=== PATIENT | male | born 1955 | race Caucasian/White ===

== ENCOUNTER 2025-01-16 10:50 | Outpatient (AMB) | payer MEDICARE, BC, SELFPAY ==
--- NOTE | 2025-01-16 11:08 | MHC.PC.OV ---
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 Allergies bee pollen (BEE STINGS) Allergy (Severe, Unverified 01/16/25 11:10) ANAPHYLAXIS, hives Medication List - Last Reconciled 01/17/25 by ENRICO Veras aspirin 81 mg PO DAILY atorvastatin (Lipitor) 80 mg PO DAILY Tobacco use date assessed: 01/16/25 Dental Screening Dental Screen Date: 01/16/25 Did you have a dental visit in the last 12 months?: Yes Did you have a dental problem in the last 6 months where you did not have access to dental care?: No Was dental information given to patient?: Patient has dentist HPI HPI Comments History of Present Illness Details 69-year-old male with a past medical history of prediabetes, hyperlipidemia, left ear cholesteatoma, osteoarthritis, elevated blood pressure and obesity presents to establish care. Left eye retinal occlusion-receives injections every 5 weeks. Needs referral to [facility]. History of left ear cholesteatoma. Underwent operation at [place] some 30 years ago. Sees ENT in [place] annually for exam. Patient had bilateral knee replacements in 2018. He also had right rotator cuff repair in 2019. Surgeries were done at [facility]. He was seen recently for left shoulder pain and received an injection. Reports they did imaging and he does not have a rotator cuff tear. He has elevated blood pressure. He watches his sodium. States that he does not want to take any medication for this. He has a blood pressure cuff at home. He recently started exercising again. He has a a history of angioedema with bee stings. No history of trouble breathing or throat swelling. He has an EpiPen that is up-to-date. He had a negative Cologuard test in February of 2024. Hyperlipidemia is treated with Lipitor 80 mg daily. He is also on baby aspirin. Several years ago he was evaluated for for possible TIA, but he says that neurology saw him and ran multiple tests, and they determined it was not a TIA or CVA. No alcohol. He does not smoke. He also has a history of prediabetes. He is traveling to [place] and needs a letter excusing him from the yellow fever vaccine because he is over the age of 65. Per CDC guidelines this age group is at an increased risk of complications. I provided him with a letter today. ROS: Constitutional: No unexplained weight loss, fever, chills, fatigue or night sweats. Eyes: No vision changes, chronic blurriness of the left eye Respiratory: No shortness of breath, cough or sputum production. Cardiovascular: No chest pain, chest pressure or chest discomfort. No palpitations or pedal edema. Neurologic: No headache, dizziness, syncope Endocrine: No cold or heat intolerance. No polyuria or polydipsia. Psychiatric: No depression or anxiety. No SI/HI. Physical exam: Constitutional: Alert, in no distress. Neck: Supple, Full range of motion. No lymphadenopathy. No palpable thyroid masses. Respiratory: Clear to auscultation. Cardiovascular: S1 S2 regular. No murmurs. Neurologic: No focal neurological deficits. Extremities: Warm and well perfused. No clubbing, cyanosis or edema. Psychiatric: Normal mood and affect [facility] Medical History (Updated 01/17/25 @ 16:36 by ENRICO Veras) Retinal vascular occlusion, left eye Elevated blood pressure reading Obesity, class 2 History of cholesteatoma Prediabetes History of shingles Hyperlipemia Rotator cuff injury Surgical History (Updated 01/17/25 @ 16:34 by ENRICO Veras) History of repair of right rotator cuff S/P knee replacement Family History (Updated 01/16/25 @ 11:14 by Angelina Casey MA) Sister Cardiomyopathy Social History (Updated 01/16/25 @ 11:14 by Angelina Casey MA) Housing: House Alcohol intake: current Comment: Socially Patient Tobacco Use Status: Never used Tobacco e-Cigarette/Vaping Use: Never Used Second Hand Smoke Exposure: No service: No Current occupational status: employed Current occupation: [employer] Current occupational exposures/hazards: No Cognitive needs: No Hearing needs: Yes Vision needs: Yes Questionnaire PHQ-9 Over the last 2 weeks, how often have you been bothered by any of the following problems? 1. Little interest or pleasure in doing things: not at all 2. Feeling down, depressed, or hopeless: not at all 3. Trouble falling or staying asleep, or sleeping too much: not at all 4. Feeling tired or having little energy: not at all 5. Poor appetite or overeating: not at all 6. Feeling bad about yourself - or that you are a failure or have let yourself or your family down: not at all 7. Trouble concentrating on things, such as reading the newspaper or watching television: not at all 8. Moving or speaking so slowly that other people could have noticed. Or the opposite - being so fidgety or restless that you have been moving around a lot more than usual: not at all 9. Thoughts that you would be better off or of hurting yourself in some way: not at all Total score: 0 Depression Screening Interpretation: Negative Depression Screening Done: Yes 52985 - PHQ-9 Billing: Yes Source: Developed by Drs. Nick Ross, Bhavana Vyas, Baldemar Burciaga and colleagues, with an educational myrtle from [employer]. Thrive Questionnaire Date Thrive assessed: 01/16/25 I am a: Patient What is your living situation today?: I have a steady place to live Within the past 12 months, did you worry whether your food would run out before you got money to buy more?: Never true Do you have trouble paying for medicines?: No Do you have trouble getting transportation to medical appointments?: No Do you have trouble paying your heating and electricity bill?: No Do you have trouble taking care of your child, family member or friend?: No Do you have trouble with day-to-day activities such as bathing, preparing meals, shopping, managing finances, etc.?: No Are you currently unemployed and looking for a job?: No Are you interested in more education?: No Please select the resources that you would like help with: None Currently or been in a relationship where the following occur: I choose not to answer THRIVE Score: 0 AUDIT C Alcohol Use Questionnaire (AUDIT-C) 1. How often do you have a drink containing alcohol?: Monthly or less 2. How many drinks containing alcohol do you have on a typical day when you are drinking?: 1 or 2 3. How often do you have six or more drinks on one occasion?: Never Total Score: 1 GUS-7 AMB Questionnaire GUS-7 Feeling nervous, anxious, or on edge: 0 = Not at all Not being able to stop or control worryin = Not at all Worrying too much about different things: 0 = Not at all Trouble relaxin = Not at all Being so restless that it is hard to sit still: 0 = Not at all Becoming easily annoyed or irritable: 0 = Not at all Feeling afraid as if something awful might happen: 0 = Not at all Total GUS-7 score (0-4 normal; 5-9 mild; 10-14 moderate; 15-21 severe): 0 Source: Developed by Drs. Nick Ross, Bhavana Vyas, Blademar Burciaga and colleagues, with an educational myrtle from [employer]. GUS-7 Assessment Billing GUS-7 Assessment Tool: GUS-7 Assessment 32560 Physical exam (Primary Care) Vital Signs: Last Vital Signs Temp 97.6 F 01/16/25 11:16 Pulse 71 01/16/25 11:16 Resp 16 01/16/25 11:16 BP 142/88 H 01/16/25 11:16 Pulse Ox 98 01/16/25 11:16 Oxygen Delivery Method Room Air 01/16/25 11:16 BMI result Body Mass Index 38.8 Tobacco/Smoking Status: Tobacco use Status Tobacco use date assessed 01/16/25 01/16/25 11:19 Patient Tobacco Use Status Never used Tobacco 01/16/25 11:19 e-Cigarette/Vaping Use Never Used 01/16/25 11:19 PHQ-9: PHQ-9 Score PHQ-9: Total score 0 01/16/25 11:37 Depression Screening Interpretation: Negative Thrive Assessment: Date of Thrive Assessment Date Thrive assessed 01/16/25 01/16/25 11:19 Currently or been in a relationship where the following occur: I choose not to answer Coding Level of Care Code New Pt Level 4 (15940) Complex EM visit Add On G2211 Diagnoses Pure hypercholesterolemia E78.00 Hyperlipidemia type: pure hypercholesterolemia Prediabetes R73.03 History of cholesteatoma Z86.69 Obesity, class 2 E66.812 Elevated blood pressure reading R03.0 Additional Codes GUS-7 Assessment Billing - GUS-7 Assessment Tool: GUS-7 Assessment 76553 ([id number]) PHQ-9 - 58696 - PHQ-9 Billing: Yes ([id number]) Assessment & Plan Assessment & Plan (1) Hyperlipemia: Code(s): E78.5 - Hyperlipidemia, unspecified Category: Medical Qualifiers: Hyperlipidemia type: pure hypercholesterolemia Qualified Code(s): E78.00 - Pure hypercholesterolemia, unspecified Plan: Recommended Mediterranean diet and continuing exercise to promote healthy weight. Continue atorvastatin and baby aspirin. (2) Prediabetes: Code(s): R73.03 - Prediabetes Category: Medical Plan: Check hemoglobin A1c. Recommended low carbohydrate and low sugar diet. He does not drink alcohol. Continue exercise to promote weight loss. (3) History of cholesteatoma: Code(s): Z86.69 - Personal history of other diseases of the nervous system and sense organs Category: Medical Plan: Followed by ENT annually. Referral placed. (4) Obesity, class 2: Code(s): E66.812 - Obesity, class 2 Category: Medical Plan: Recommended decreasing portion sizes, exercising at least 5 days per week. Avoiding her carbohydrate foods. Avoid juice and soda. (5) Elevated blood pressure reading: Code(s): R03.0 - Elevated blood-pressure reading, without diagnosis of hypertension Category: Medical Plan: We discussed the implications of uncontrolled high blood pressure. Recommended low-sodium diet. He recently started exiting sizing again. He is monitoring his blood pressure at home. He does not want to start medication for hypertension. We will re-evaluate in 3 months' time. Check renal function. Plan Follow up in 3 months. Orders: Orders Complete Blood Count no Diff 01/16/25 E78.5 - Hyperlipidemia, unspecified, R73.03 - Prediabetes Lipid Panel 01/16/25 E78.5 - Hyperlipidemia, unspecified, R73.03 - Prediabetes Hemoglobin A1c 01/16/25 E78.5 - Hyperlipidemia, unspecified, R73.03 - Prediabetes, R73.9 - Hyperglycemia, unspecified TSH reflex Free T4 01/16/25 E78.5 - Hyperlipidemia, unspecified, R73.03 - Prediabetes Comprehensive Met. Panel 01/16/25 E78.5 - Hyperlipidemia, unspecified, R73.03 - Prediabetes Prostate Specific Antigen 01/16/25 E78.5 - Hyperlipidemia, unspecified, R73.03 - Prediabetes, Z12.5 - Encounter for screening for malignant neoplasm of prostate Microalbumin, Random (w Creat) 01/16/25 E78.5 - Hyperlipidemia, unspecified, R73.03 - Prediabetes Referrals Ophthalmology Referral H34.9 - Unspecified retinal vascular occlusion Ear/Nose/Throat Referral Z86.69 - Personal history of other diseases of the nervous system and sense organs
[2025-01-16 11:16] VITALS: BP 142/88; PULSE 71; RESP 16; TEMP 36.4; O2SAT 98; BMI 38.8
--- OUTSIDE RECORDS SUMMARY | 2025-01-16 13:10 | XMS_ITS | Encounter Summary ---
Author Organization [employer] Address [address] [place] [address] Care Team Providers Care Bone Worker Name Role Phone Melanie Blevins NISHI Primary Care Provider [phone] Reason for Visit * Reason Onset Date Comments Med Refill 12/29/2024 Encounter Details Date Type Department Care Team (Late st Contact Info) Description 12/29/2024 Refill [facility] [address] [place] [address] Corrine Garcia MD [address] [place] [address] Social History Tobacco Use Types Packs/Day Years Used Date Smoking Tobacco: Never Passive Smoke Exposure: Never Smokeless Tobacco: Never Alcohol Use Standard Drinks/Week Comments Yes 0 (1 standard drink = 0.6 oz pur e alcohol) Only a few times a year. Alcohol Answer Date Recorded How often do you have a drink containing alcohol ? 0 07/05/2024 How many drinks containing a lcohol do you have on a typical day when you are drinking? 0 07/05/2024 How often do you have six or more drinks on one occasion? 0 07/05/2024 Housing Stability Answer Date Recorded What is your housing situation today? I have leora flores 01/18/[address] you li ve. Do you have problems with any of the following? None of the above 01/18/2024 Food Insecurity Answer Date Recorded Within the past 12 months, y ou worried that your food would run out before you got money to buy more: Never True 01/18/2024 Within the past 12 months,th e food you bought just didn't last and you didn't have enough money to get more: Never True 01/2024 Transportation Answer Date Recorded In the past 12 months, has l ack of transportation kept you from medical appts, meetings, work or from getting things needed for daily living? No 01/18/2024 Intimate Partner Violence Answer Date R ecorded Within the last year, have y ou been afraid of your partner or ex-partner? 2 07/05/2024 Within the last year, have y ou been humiliated or emotionally abused in other ways by your partner or ex-partner? 2 Within the last year, have y ou been kicked, hit, slapped, or otherwise physically hurt by your partner or ex-partner? 2 07/05/2024 Within the last year, have y ou been raped or forced to have any kind of sexual activity by your partner or ex-partner? 2 07/05/2024 Utilities Answer Date Recorded In the past 12 months, has t he 2houses, gas, oil or water company threatened to shut off services in your home? No 01/18/2024 Depression Answer Date Recorded Patient Health Questionnaire-2 Score 0 01/18/2024 Internet Access Answer Date Recorded Internet Access Q1 Yes 01/18/2024 Internet Access Q2 Not on file 01/18/2024 Education Answer Date Recorded What is the highest level of school you have completed or the highest degree you have received? Associate degree: occupational, technical, or vocational program 07/05/2024 Sex and Gender Information Value Date Recorded Sex Assigned at Male 05/02/2022 3:15 PM EST Legal Sex Male 8:40 PM EDT Gender Identity Male 05/02/2022 3:15 PM EST Sexual Orientation Straight 05/02/2022 3: 15 PM EST Occupation Industry Job Start Date Job End Date Not on file Not on file Not on file Not on file documented as of this encounter Miscellaneous Notes * Telephone Encounter - Jan Tran - 12/29/2024 10:45 AM EDT Rx was sent yesterday called the pharmacy and confirmed documented in this encounter Plan of Treatment Not on file documented as of this encounter Visit Diagnoses Not on filedocumented in this encounter Care Teams Bone Worker Relationship Specialty Start Date End Date Melanie Blevins FNP [address] [place] [address] PCP - General Family Medicine 05/02/22 documented as of this encounter
--- OUTSIDE RECORDS SUMMARY | 2025-01-16 13:10 | XMS_ITS | Encounter Summary ---
Author Organization [employer] Address [address] [facility] [facility] [address] [place] [address] Care Team Providers Care Instructor Knitting Name Role Phone Melanie Blevins Primary Care Provider [phone] Reason for Visit * Reason Onset Date Comments Med Refill 12/27/2024 Encounter Details Date Type Department Care Team (Late st Contact Info) Description 12/27/2024 Refill [facility] [address] [place] [address] Melanie Blevins FNP [address] [place] [address] Social History Tobacco Use Types Packs/Day Years [...] the past 12 months, has t he electric, gas, oil or water company threatened to [...] encounter Miscellaneous Notes * Telephone Encounter - Corrine Garcia MD - 12/28/2024 9:33 AM EDT Approving, but needs appt for additional refills. documented in this encounter Plan of Treatment Not on file documented as of this encounter Visit Diagnoses Not on filedocumented in this encounter Care Teams Instructor Knitting Relationship Specialty Start Date End Date Melanie Blevins FNP [address] [place] [address] PCP - General Family Medicine 05/02/22 documented as of this encounter
--- OUTSIDE RECORDS SUMMARY | 2025-01-16 13:10 | XMS_ITS | Encounter Summary ---
Author Organization [facility] Address [address] [facility] [address] [place] [phone] Phone Care Team Providers Care Software Designer Name Role Phone Laurence Man MD Primary Care Provider Laurence Man MD Primary Care Provider Korina Tay MD Primary Care Provider [phone] Melanie Blevins NP Primary Care Provider Korina Tay MD Unavailable [phone] Encounter Details Date Type Department Care Team (Late Contact Info) Description 12/24/2016 Procedure Pass [facility]IVE DEPT [address] [place] [id number] Social History Tobacco Use Types Packs/Day Years Used Date Smoking Tobacco: Never Smokeless Tobacco: Never Alcohol Use Standard Drinks/Week Comments Yes 0 (1 standard drink = 0.6 oz pur e alcohol) Sex and Gender Information Value Date Recorded Sex Assigned at Not on file Legal Sex Male 3:02 PM EDT Gender Identity Not on file Sexual Orientation Not on file documented as of this encounter Plan of Treatment Upcoming Encounters Date Type Department Care Team (Late Contact Info) Description 03/13/2025 8:30 AM EST Office Visit [facility] Neurology [address] [place] [address] Tino Tobias MD [address] [facility] 2nd [place] [address] documented as of this encounter Visit Diagnoses Not on filedocumented in this encounter Additional Health Concerns Infection Onset Date Last Indicated Resolved Time CoV-Risk 06/27/2024 06/27/2024 07/08/2024 1:21 AM EST documented as of this encounter Care Teams Software Designer Relationship Specialty Start Date End Date Laurence Man MD PCP - General Internal Medicine 10/27/16 04/07/17 Laurence Man MD PCP - General Internal Medicine 04/08/17 06/26/24 Korina Tay MD [address] [place] [id number] [email or web address] PCP - General Pediatrics 06/27/24 08/30/24 Melanie Blevins NP [address] [place] [address] PCP - General Nurse Practitioner 08/31/24 Korina Tay MD [address] [place] [phone] [email or web address] Insurance Assigned Provider Pediatrics 09/12/24 documented as of this encounter Additional Source Comments The information contained in this document represents components of the legal health record. It is not the complete legal health record.[facility]
--- OUTSIDE RECORDS SUMMARY | 2025-01-16 13:10 | XMS_ITS | Clinical Summary ---
Author Organization [facility] Address [address] [place] [address] Phone Care Team Providers Care Manager Content Name Role Phone Melanie Blevins NP Primary Care Provider [phone] Korina Tay MD Unavailable [phone] Allergies Active Allergy Reactions Criticality Noted Date Comments Bee Venom Protein (Honey Bee) Anaphylaxis High 12/24 Medications EPINEPHrine 0.3 mg/0.3 mL auto-injector INJECT 1 PEN INTO MUSCLE NEEDED FOR ANAPHYLAXIS REACTION. IF you have SEVERE reaction WITH LIP SWELLING OR difficulty breathing 1 8 Active atorvastatin (LIPITOR) 80 MG tablet Take 80 mg by mouth daily. Active aspirin 81 MG EC tablet Take 81 mg by mouth. 4 01/18/20 25 Active Active Problems Problem Noted Date Diagnosed Date History of repair of right rotator cuff 07/31/19 19 Chronic right shoulder pain 06/09/2017 Arthritis of left knee 12/24/2016 Family History Medical History Relation Comments No Known Problems Brother No Known Problems Father No Known Problems Maternal Aunt No Known Problems Maternal Grandfather No Known Problems Maternal Grandmother No Known Problems Maternal Uncle No Known Problems Mother No Known Problems Paternal Aunt No Known Problems Paternal Grandfather No Known Problems Paternal Grandmother No Known Problems Paternal Uncle Clotting disorder Sister Hypertrophic cardiomyopathy Sister No Known Problems Unspecified Cancer Neg Hx Collagen disease Neg Hx Depression Neg Hx Diabetes Neg Hx Dislocations Neg Hx Gout Neg Hx Infl. arthritis Neg Hx Osteoporosis Neg Hx Scoliosis Neg Hx Relation Status Comments Brother Father Maternal Aunt Maternal Grandfather Maternal Grandmother Maternal Uncle Mother Paternal Aunt Paternal Grandfather Paternal Grandmother Paternal Uncle Sister Unspecified Social History Tobacco Use Types Packs/Day Years Used Date Smoking Tobacco: Never Smokeless Tobacco: Never Alcohol Use Standard Drinks/Week Comments Yes 0 (1 standard drink = 0.6 oz pur e alcohol) Education Answer Date Recorded Are you interested in more education? Not on ariella e 09/05/2022 Are you concerned about learning? Not on file 09/05/2022 No 09/05/2022 No 09/05/2022 Digital Access Answer Date Recorded No 10/06/2022 No 10/06/2022 Reliable internet access at home? Not on file 10/06/2022 Device with a working camera? Not on file Sex and Gender Information Value Date Recorded Sex Assigned at Not on file Legal Sex Male 3:02 PM EDT Gender Identity Not on file Sexual Orientation Not on file Last Filed Vital Signs Vital Sign Reading Time Taken Comments Blood Pressure 160/90 06/27/2024 9:23 AM EST Pulse 68 06/27/2024 9:23 AM EST Temperature 36.8 C (98.3 F) 06/27/2024 9:23 AM EST Respiratory Rate 16 06/27/2024 9:23 AM EST Oxygen Saturation 97% 06/27/2024 9:23 AM EST Inhaled Oxygen Concentration - - Weight 104.3 kg (229 lb 15 oz) 02/10/2018 8:23 A M EDT Height 170.2 cm (5' 7.01 ) 02/10/2018 8:23 AM ED T Body Mass Index 36.01 02/10/2018 8:23 AM EDT Plan of Treatment Upcoming Encounters Date Type Department Care Team (Late st Contact Info) Description 03/13/2025 8:30 AM EST Office Visit [facility] Neurology [address] [place] [address] Tino Tobias MD [address] [facility], 2nd [place] [address] [email or web address] Health Maintenance Due Date Last Done Comments DEPRESSION SCREENING 1968 HEPATITIS C SCREENING 1974 COLONOSCOPY 2001 FIT TEST 2001 FOBT 2001 SIGMOIDOSCOPY 2001 VIRTUAL COLONOSCOPY 2001 PNEUMOCOCCAL VACCINES (50+ years) (1 of 1 - PCV) 2006 ZOSTER VACCINES (1 of 2) 2006 RSV VACCINE (1 - Risk 60-74 years 1-dose series) 2016 INFLUENZA VACCINE (#1) 2024 COVID-19 VACCINE (1 - 2023-2 5 season) 2025 COLOGUARD 03/02/2027 03/02/2024 COLORECTAL CANCER SCREENING 03/02/2027 Adult Td,Tdap Booster 10/29/2028 10/29/2018 , 12/19/2013, 11/18/2013 LIPID PANEL 07/05/2029 07/05/2024, 01/18/2024 SMOKING STATUS SCREENING (On ce After 26 Yrs) Completed 09/15/2024 HEPATITIS A VACCINES Aged Out No long er eligible based on patient's age to complete this topic HIB VACCINES Aged Out No longer eligi ble based on patient's age to complete this topic MENINGOCOCCAL VACCINES (ACWY) Aged Out No longer eligible based on patient's age to complete this topic MENINGOCOCCAL VACCINES (B) Aged Out N o longer eligible based on patient's age to complete this topic Medical Devices Implanted Type Area Director Of Billing Device Identifier Shelf Expiration Date Model / Serial / Lot Joint Replacement Right: Knee Knee Baseplate Xr Journey Ii Sz 5 Lt 1 - [id number] Implanted:Qty: 1 on 12/24/2016 by Mitch Pederson MD at [facility] Left: Genie SALAZAR 12/07/2025 [id number] / / [id number] Knee Femoral Journey Ii Oxinium Cruciate Retaining Milk Collector Left Sz5 - [id number] Implanted:Qty: 1 on 12/24/2016 by Mitch Pederson MD at [facility] Left: Knee MARIE 10/06/2026 [id number] / / [id number] Knee Insert Xr Xlpe Journey Ii Lat 5-6 Lt 9mm 1 - [id number] Implanted:Qty: 1 on 12/24/2016 by Mitch Pederson MD at [facility] Left: Knee MARIE 09/18/2025 [id number] / / [id number] Knee Insert Xr Xlpe Journey Ii Med 5-6 Lt 9mm 1 - [id number] Implanted:Qty: 1 on 12/24/2016 by Mitch Pederson MD at [facility] Left: Knee SALAZAR 06/24/2025 [id number] / / [id number] Knee Component Patella Std 35mm Resurfacing Round Yeimi Knee 06 - [id number] Implanted:Qty: 1 on 12/24/2016 by Mitch Pederson MD at [facility] Left: Knee SALAZAR 10/13/2026 [id number] / / [id number] Cement Bone 40gr Palacos R Single Dose Bx/1bo/1ea - [id number] Implanted:Qty: 2 on 12/24/2016 by Micth Pederson MD at [facility] Left: Knee DIANA / DIV OF [employer] 07/08/2021 [id number] / / [id number] Jerome Suture 4.5mm Arthroscopy Reelx Stt Peek Stainless Steel Core Knotless Sharp Tip Expandable Sterile Bx/5ea - [id number] Implanted:Qty: 1 on 07/10/2017 by Venu Lazcano DO at [facility] Right: Shoulder [employer] 04/20/2019 [id number] / / [id number] Insurance [place] H[place] BLUE RE[place]AC[place] MEDICARE PART A & [place] BL[place] MEDICARE PART A & B [facility] MEDICARE HMO BLUE REPLACEMENT MEDICARE PART A & B [facility] MEDICARE HMO BLUE REPLACEMENT MEDICARE PART A & B [facility] MEDICARE HMO BLUE REPLACEMENT MEDICARE PART A & B [place] BLUE REPLACEMENT MEDICARE PART A & B Advance Directives For more information, please contact: [phone] (9AM - 5PM [facility], Thursday-Thursday) * Full Code (Presumed) (Latest Code Status on File) Date Activated Date Inactivated Comments 07/10/2017 8:43 AM 07/10/2017 4:07 PM * Full Code (Presumed) Date Activated Date Inactivated Comments 12/24/2016 8:52 PM 12/26/2016 10:45 AM * Full Code (Presumed) Date Activated Date Inactivated Comments 12/24/2016 12:34 PM 12/24/2016 8:52 PM Care Teams Manager Content Relationship Specialty Start Date End Date Melanie Blevins NP PCP - General Nurse Practitioner 08/31/24 Korina Tay MD [address] [place] [id number] [email or web address] Insurance Assigned Provider Pediatrics 09/12/24 Additional Source Comments The information contained in this document represents components of the legal health record. It is not the complete legal health record.[facility]
--- OUTSIDE RECORDS SUMMARY | 2025-01-16 13:10 | XMS_ITS | Encounter Summary ---
Author Organization [facility] Address [address] [facility] [address] [place] [address] Phone Care Team Providers Care Power Press Operator Name Role Phone Laurence Man MD Primary Care Provider [phone] Korina Tay MD Primary Care Provider Melanie Blevins NP Primary Care Provider [phone] Korina Tay MD Unavailable [phone] Encounter Details Date Type Department Care Team (Late st Contact Info) Description 01/18/2024 Procedure Pass [facility] [address] [place] [address] Social History Tobacco Use Types Packs/Day Years [...] on file documented as of this encounter Functional Status * Patient is deaf or has serious difficulty with hearing Answer Date of Assessment Author No 12/25/2016 3:40 PM EDT Basilia Yee NP * Patient is blind or has serious difficulty with seeing, even when wearing glasses Answer Date of Assessment Author No 12/25/2016 3:40 PM EDT Basilia Yee NP * Patient has serious difficulty walking or climbing stairs (5yr old or older) Answer Date of Assessment Author Yes 12/25/2016 3:40 PM EDT Basilia Yee NP * Patient has serious difficulty dressing or bathing (5yr old or older) Answer Date of Assessment Author No 12/25/2016 3:40 PM EDT Basilia Yee NP * Patient has serious difficulty doing errands alone such as visiting a doctor???s office or shopping, due to physical, mental, or emotional condition (15 years old or older) Answer Date of Assessment Author Yes 12/25/2016 3:40 PM EDT Basilia Yee NP documented as of this encounter Mental Status * Patient has serious difficulty concentrating, remembering, or making decisions due to physical, mental, or emotional condition Answer Entry Date Author No 12/25/2016 3:40 PM MELLT Basilia Yee NP documented in this encounter Plan of Treatment Upcoming Encounters Date Type Department Care Team (Late st Contact Info) Description 03/13/2025 8:30 AM EST Office Visit [facility] Neurology [address] [place] [address] Tino Tobias MD [address] [place] [address], [address] [place] [address] [email or web address] documented as of this encounter Visit Diagnoses Not on filedocumented in this encounter Additional Health Concerns Infection Onset Date Last Indicated Resolved Time CoV-Risk 06/27/2024 06/27/2024 07/08/2024 1:21 AM EST documented as of this encounter Care Teams Power Press Operator Relationship Specialty Start Date End Date Laurence Man MD PCP - General Internal Medicine 04/08/17 06/26/24 Korina Tay MD [address] [place] [address] [email or web address] PCP - General Pediatrics 06/27/24 08/30/24 Melanie Blevins NP [address] [place] [id number] PCP - General Nurse Practitioner 08/31/24 Korina Tay MD [address] [place] [phone] [email or web address] Insurance Assigned Provider Pediatrics 09/12/24 documented as of this encounter Additional Source Comments The information contained in this document represents components of the legal health record. It is not the complete legal health record.[facility]
--- OUTSIDE RECORDS SUMMARY | 2025-01-16 13:10 | XMS_ITS | Encounter Summary ---
Author Organization [facility] Address [address] [facility] [address] [place] [address] Phone Care Team Providers Care Community Resource Officer Name Role Phone Laurence Man MD Primary Care Provider Laurence Man MD Primary Care Provider Korina Tay MD Primary Care Provider Melanie Blevins NP Primary Care Provider [phone] Korina Tay MD Unavailable [phone] Encounter Details Date Type Department Care Team (Late st Contact Info) Description 12/11/2016 Prep for Surgery Mitch Pederson MD [address] [facility] [address] [place] [address] [place] [address] [email or web address] Social History Tobacco Use Types Packs/Day Years Used Date Smoking Tobacco: Never Assessed Sex and Gender Information Value Date Recorded Sex Assigned at Not on file Legal Sex Male 3:02 PM EDT Gender Identity Not on file Sexual Orientation Not on file documented as of this encounter Plan of Treatment Upcoming Encounters Date Type Department Care Team (Late st Contact Info) Description 03/13/2025 8:30 AM EST Office Visit [facility] Neurology [address] [place] [address] Tino Tobias MD [address] [facility], [address]nd [place] [address] documented as of this encounter Visit Diagnoses Not on filedocumented in this encounter Additional Health Concerns Infection Onset Date Last Indicated Resolved Time CoV-Risk 06/27/2024 06/27/2024 07/08/2024 1:21 AM EST documented as of this encounter Care Teams Community Resource Officer Relationship Specialty Start Date End Date Laurence Man MD PCP - General Internal Medicine 10/27/16 04/07/17 Laurence Man MD PCP - General Internal Medicine 04/08/17 06/26/24 Korina Tay MD [address] [place] [phone] [email or web address] PCP - General Pediatrics 06/27/24 08/30/24 Melanie Blevins NP [address] [place] [phone] PCP - General Nurse Practitioner 08/31/24 Korina Tay MD [address] [place] [phone] [email or web address] Insurance Assigned Provider Pediatrics 09/12/24 documented as of this encounter Additional Source Comments The information contained in this document represents components of the legal health record. It is not the complete legal health record.[facility]
--- OUTSIDE RECORDS SUMMARY | 2025-01-16 13:10 | XMS_ITS | Clinical Summary ---
Author Organization [facility] Address [address] [place] [address] Care Team Providers Care Shoe Packer Name Role Phone Unavailable Primary Care Provider Unavailabl e Social History Tobacco Use Types Packs/Day Years Used Date Smoking Tobacco: Never Assessed Sex and Gender Information Value Date Recorded Sex Assigned at Not on file Gender Identity Not on file Sexual Orientation Not on file Plan of Treatment Not on file
--- OUTSIDE RECORDS SUMMARY | 2025-01-16 13:10 | XMS_ITS | Encounter Summary ---
Author Organization [facility] Address [address] [place] [phone] Phone Care Team Providers Care Exposure Machine Operator Name Role Phone Laurence Man MD Primary Care Provider Korina Tay MD Primary Care Provider [phone] Melanie Blevins NP Primary Care Provider [phone] Korina Tay MD Unavailable [phone] Encounter Details Date Type Department Care Team (Late st Contact Info) Description 07/10/2017 Procedure Pass OR Admitting Dept - Virtual Department [address] [place] [id number] Social History Tobacco Use Types Packs/Day Years [...] Entry Date Author No 12/25/2016 3:40 PM EDT Basilia Yee NP documented in this encounter Plan of Treatment Upcoming Encounters Date Type Department Care Team (Late st Contact Info) Description 03/13/2025 8:30 AM EST Office Visit [facility] Neurology [address] [place] [phone] Tino Tobias MD [address] [place] [address], [address] [place] [address] [email or web address] documented as of this encounter Visit Diagnoses Not on filedocumented in this encounter Additional Health Concerns Infection Onset Date Last Indicated Resolved Time CoV-Risk 06/27/2024 06/27/2024 07/08/2024 1:21 AM EST documented as of this encounter Care Teams Exposure Machine Operator Relationship Specialty Start Date End Date Laurence Man MD PCP - General Internal Medicine 04/08/17 06/26/24 Korina Tay MD [address] [place] [address] [email or web address] PCP - General Pediatrics 06/27/24 08/30/24 Melanie Blevins NP [address] [place] [address] PCP - General Nurse Practitioner 08/31/24 Korina Tay MD [address] [place] [address] [email or web address] Insurance Assigned Provider Pediatrics 09/12/24 documented as of this encounter Additional Source Comments The information contained in this document represents components of the legal health record. It is not the complete legal health record.[facility]
--- OUTSIDE RECORDS SUMMARY | 2025-01-16 13:10 | XMS_ITS | Encounter Summary ---
Author Organization [facility] Address [address] [place] [address] [place] [phone] Phone Care Team Providers Care Weapons Electrical Engineering Officer Name Role Phone Laurence Man MD Primary Care Provider Korina Tay MD Primary Care Provider Melanie Blevins NP Primary Care Provider Korina Tay MD Unavailable [phone] Reason for Referral * Outpatient Procedure - Closed Specialty Diagnoses / Procedures Referred By Contac t Referred To Contact Radiology Diagnoses Mild dilation of ascending aorta Procedures US Abdominal Aortic Screening Melanie Blevins NP Phone: tel: fax: Referral ID Status Reason Start Date Expiration Date Visits Re quested Visits Authorized [id number] Closed 01/18/2024 01/17/2025 1 1 * Outpatient Procedure - Closed Specialty Diagnoses / Procedures Referred By Contac t Referred To Contact Radiology Diagnoses Mild dilation of ascending aorta Procedures Adult Echo TTE Melanie Blevins NP Phone: tel: fax: Referral ID Status Reason Start Date Expiration Date Visits Re quested Visits Authorized [id number] Closed 01/18/2024 01/17/2025 1 1 Encounter Details Date Type Department Care Team (Latest Contact Info) Description 01/18/2024 Transcribe Orders Virtual Department [address] [place] [address] Melanie Blevins NP [address] [place] [address] Mild dilation of ascending aorta (Primary Dx) Social History Tobacco Use Types Packs/Day Years [...] Description 03/13/2025 8:30 AM EST Office Visit [facility] Neurology [address] [place] [address] iTno Tobias MD 22 [facility], 2nd [place] [address] [email or web address] documented as of this encounter Results * TTE COMPREHENSIVE (01/26/2024 1:51 PM EDT) Body Surface Area 2.15 m2 Height 170 cm Weight 104 kg Systolic BP 157 mmHg Diastolic BP 98 mmHg Left Atrium Dimension Anterior-Posterior 38 15 - 40 mm Aortic Valve Peak Velocity 111.0 cm/s Aortic Valve Peak Velocity 111.0 cm/s Aortic Valve Peak Gradient 5 mmHg Aortic Valve Mean Gradient 3 mmHg Aortic Valve Mean Gradient 3 mmHg Aortic Valve Time Velocity Integral 174.0 mm Aortic Sinus Diameter 36 <40 mm Ascending Aorta Diameter 35 <36 mm Inferior Vena Cava Diameter 18 <21 mm Interventricular Septum Thickness 14 6 - 11 mm Left Ventricle Internal Diameter End Diastole 48 42 - 58 mm Left Ventricle Internal Diameter End Systole 30 <40 mm Left Ventricular Outflow Tract Diameter 24.0 mm LVOT VTI REST 146.0 mm Left Ventricular Outflow Tract Velocity 1.0 m/s Left Ventricular Outflow Tract Gradient at Rest 4 mmHg Left Ventricular Posterior Wall Thickness 11 6 - 11 mm Ejection Fraction 65 50 - 75 Percent Mitral Valve A Wave Speed 92.1 cm/s Mitral Valve E Wave Speed 60.8 cm/s Right Ventricle Basal Diameter 34 25 - 41 mm Raw LV EF% 61 % Relative Wall Thickness 0.46 0.22 - 0.42 Aortic Valve Prosthetic Peak Gradient 5 mmHg Aortic Valve Sinus Index by BSA 17 mm/m2 Aorta Sinus Index by Height 2.12 cm/m Aorta Sinus CSA index by Height 5.98 cm2/m Ascending Aorta Index 16 mm/m2 Asc Aorta CSA Index by Height 5.66 cm2/m Ascending Aorta Index 16 mm Aortic Sinus Index 17 mm Ascending Aorta Diameter 16 mm Aortic Valve Sinus Index 1 17 20 - 32 mm AO ASC DIAM BSA INDEX 16.28 Left Ventricle Ea Lateral Wave Speed 6.9 cm/s Right Ventricle TAPSE 19 >=17 mm MV E/E' Tissue Velocity Lateral 8.81 Right Ventricle Pulse Doppler S Wave 10.3 >=9.5 cm/s Left Ventricle E Wave Speed 60.8 cm/s Left Ventricle A Wave Speed 92.1 cm/s MV E/A ratio 0.7 Left Ventricle Ea Septal Wave Speed 6.0 cm/s MV E/e' septal 10.13 Left Ventricle E/e' Average 9.5 Right Atrium Area 15 cm2 Right Atrium Area index 7 cm2/m2 Echo E/Ea 10.13 Anatomical Region Laterality Modality Heart Ultrasound Narrative 01/27/2024 8:52 AM EDT Images from the original result were not included. Mild LVH with normal LV systolic function EF 65%. Aortic root measures 3.6 cm. Ascending aorta measures 3.5 cm. These are both within normal limits. Normal RV size and function. Trace aortic insufficiency. Left Ventricle The left ventricle is normal in size. There is concentric hypertrophy. There is normal left ventricular systolic function. The LV ejection fraction is 65% (calculated via the single dimension method). The e' septal wave velocity is 6.0 cm/s. The e' lateral wave velocity is 6.9 cm/s. The average E/e' ratio is 9.5. Right Ventricle The right ventricle is normal in size. The RV basal dimension is 34 mm. There is normal right ventricular systolic function. TAPSE is 19 mm. RV S' wave is 10.3 cm/s. Left Atrium The left atrium is normal in size. The left atrial anterior-posterior dimension is 38 mm. There are normal flow patterns in the pulmonary vein. Right Atrium The right atrium is normal in size. The right atrial area is 15 cm2. The IVC is normal in size with normal inspiratory collapse. The IVC diameter is 18 mm. Mitral Valve The mitral valve appears normal. There is no mitral stenosis. There is trace mitral regurgitation. Tricuspid Valve The tricuspid valve appears normal. There is no tricuspid stenosis. There is no tricuspid regurgitation. Aortic Valve The aortic valve is tricuspid with normal leaflets. There is no aortic stenosis. There is trace aortic regurgitation. The visualized portions of the thoracic aorta appear normal in size. Pulmonic Valve The pulmonic valve appears normal. There is no pulmonic stenosis. There is no pulmonic regurgitation. Pericardium There is no pericardial effusion. General Findings The image quality was fair (3). Technique(s) used in the evaluation: Color flow Doppler and Spectral Doppler. The predominant rhythm during the study was sinus. Comparison Findings There are no prior studies for comparison. IAS/IVS The interatrial septum appears normal. us Melanie Blevins NP CV ECHO ORDERABLES Final Result * US Abdominal Aortic Screening (01/21/2024 10:34 AM EDT) Anatomical Region Laterality Modality Abdomen Ultrasound 01/21/2024 10:3 5 AM EDT Narrative 01/22/2024 12:33 PM EDT US ABDOMINAL AORTIC SCREENING Referring clinician's provided indication for this examination in Epic: Outside Radiology Order; ascending aorta TECHNIQUE: A duplex ultrasound evaluation of the abdominal aorta and iliac arteries as well as the inferior vena cava was performed using a combination of ramirez scale imaging, color duplex and spectral Doppler analysis. COMPARISON: No prior abdominal aortic imaging available. FINDINGS: Exam Quality: Good GENERAL: Multiple static images of the abdominal aorta and proximal iliac arteries including color flow imaging and spectral Doppler imaging presented for review. Aorta: Proximal: Ectatic Mid: Ectatic Distal: Ectatic IVC: Not well seen Right Common Iliac Artery: Mildly ectatic but nonaneurysmal Left Common Iliac Artery: Mildly ectatic but nonaneurysmal Duplex: Proximal aorta: Peak systolic velocity (cm/s): 64 Aorta Diameter Proximal (cm): 2.7 x 3.0 Mid aorta: Peak systolic velocity (cm/s): 45 Aorta Diameter Mid (cm): 2.4 x 2.5 Distal aorta: Peak systolic velocity (cm/s): 78 Aorta Diameter Distal (cm): 2.0 x 2.2 Iliac arteries: Right common Iliac artery: Peak systolic velocity (cm/s): 48 Diameter(cm): 1.2 x 1.2 Left common Iliac artery: Peak systolic velocity (cm/s): 46 Diameter (cm): 1.4 x 1.2 IMPRESSIONS: * No evidence of abdominal aortic or proximal common iliac artery aneurysm. Procedure Note Bernard Storey MD - 01/22/2024 US ABDOMINAL AORTIC SCREENING Referring clinician's provided indication for this examination in Epic:Outside Radiology Order; ascending aorta TECHNIQUE: A duplex ultrasound evaluation of the abdominal aorta and iliacarteries as well as the inferior vena cava was performed using acombination of ramirez scale imaging, color duplex and spectral Doppleranalysis. COMPARISON: No prior abdominal aortic imaging available. FINDINGS: Exam Quality: Good GENERAL: Multiple static images of the abdominal aorta and proximal iliacarteries including color flow imaging and spectral Doppler imagingpresented for review. Aorta: Proximal: Ectatic Mid: Ectatic Distal: Ectatic IVC: Not well seen Right Common Iliac Artery: Mildly ectatic but nonaneurysmal Left Common Iliac Artery: Mildly ectatic but nonaneurysmal Duplex: Proximal aorta: Peak systolic velocity (cm/s): 64 Aorta Diameter Proximal (cm): 2.7 x 3.0 Mid aorta: Peak systolic velocity (cm/s): 45 Aorta Diameter Mid (cm): 2.4 x 2.5 Distal aorta: Peak systolic velocity (cm/s): 78 Aorta Diameter Distal (cm): 2.0 x 2.2 Iliac arteries: Right common Iliac artery: Peak systolic velocity (cm/s): 48 Diameter(cm): 1.2 x 1.2 Left common Iliac artery: Peak systolic velocity (cm/s): 46 Diameter (cm): 1.4 x 1.2 IMPRESSIONS: * No evidence of abdominal aortic or proximal common iliac arteryaneurysm. 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 documented in this encounter Additional Health Concerns Infection Onset Date Last Indicated Resolved Time CoV-Risk 06/27/2024 06/27/2024 07/08/2024 1:21 AM EST documented as of this encounter Care Teams Weapons Electrical Engineering Officer Relationship Specialty Start Date End Date Laurence Man MD PCP - General Internal Medicine 04/08/17 06/26/24 Korina Tay MD [address] [place] [phone] [email or web address] PCP - General Pediatrics 06/27/24 08/30/24 Melanie Blevins NP [address] [place] [address] PCP - General Nurse Practitioner 08/31/24 Korina Tay MD [address] [place] [phone] [email or web address] Insurance Assigned Provider Pediatrics 09/12/24 documented as of this encounter Additional Source Comments The information contained in this document represents components of the legal health record. It is not the complete legal health record.[facility]
--- OUTSIDE RECORDS SUMMARY | 2025-01-16 13:10 | XMS_ITS | Encounter Summary ---
Author Organization [facility] Address [address] [address] Phone Care Team Providers Care Audio Recording Engineer Name Role Phone Laurence Man MD Primary Care Provider Korina Tay MD Primary Care Provider [phone] Melanie Blevins NP Primary Care Provider [phone] Korina Tay MD Unavailable [phone] Reason for Referral * MRI/CAT Scan - Closed Specialty Diagnoses / Procedures Referred By Contreuben t Referred To Contact Procedures MRI Outside Upper Extremity (No Interpretation) System, Provider Not In, PhD [facility] [address] [place] [phone] Referral ID Status Reason Start Date Expiration Date Visits Re quested Visits Authorized [id number] Closed 06/30/2017 06/30/2018 1 1 Encounter Details Date Type Department Care Team (Late st Contact Info) Description 06/30/2017 Ancillary Orders [facility],Outside Imaging [address] [place] [address] System, Provider Not In, PhD [facility] [address] [place] [phone] Social History Tobacco Use Types Packs/Day Years [...] Description 03/13/2025 8:30 AM EST Office Visit [facility] Neurology [address] [place] [phone] Tino Tobias MD [address] [place] [address], [address] [place] [address] [email or web address] documented as of this encounter Results * MRI Outside Upper Extremity (No Interpretation) (04/22/2017 12:00 AM EST) Narrative SYSTEMGENERATED, DOCUMENTATION - 06/30/2017 10:00 AM EST This study is for PACS storage only and not for interpretation. us Provider Not In System PhD IMG OUTSIDE IMAGING W /OUT INTERPRETATION Final Result documented in this encounter Visit Diagnoses Not on filedocumented in this encounter Additional Health Concerns Infection Onset Date Last Indicated Resolved Time CoV-Risk 06/27/2024 06/27/2024 07/08/2024 1:21 AM EST documented as of this encounter Care Teams Audio Recording Engineer Relationship Specialty Start Date End Date Laurence Man MD PCP - General Internal Medicine 04/08/17 06/26/24 Korina Tay MD [address] [place] [address] PCP - General Pediatrics 06/27/24 08/30/24 Melanie Blevins NP [address] [place] [address] PCP - General Nurse Practitioner 08/31/24 Korina Tay MD [address] [place] [phone] Insurance Assigned Provider Pediatrics 09/12/24 documented as of this encounter Additional Source Comments The information contained in this document represents components of the legal health record. It is not the complete legal health record.[facility]
--- OUTSIDE RECORDS SUMMARY | 2025-01-16 13:10 | XMS_ITS | Clinical Summary ---
Author Organization [employer] Address [address] [facility] 7t [place] [address] Care Team Providers Care Wet Room Worker Name Role Phone Melanie Blevins NISHI Primary Care Provider [phone] Allergies Active Allergy Reactions Criticality Noted Date Comments Honey Bee Venom Anaphylaxis High 05/01/2022 Medications atorvastatin (Lipitor) 80 MG tabletIndications :Mixed hyperlipidemia Take 1 tablet (80 mg) by mouth Once per day. 90 tablet 3 12/28/19 25 026 Active EPINEPHrine (Epipen) 0.3 MG/0.3ML injection syringe Inject 0.3 mL (0.3 mg) as directed 1 (one) time for 1 dose. Inject into upper leg. Call 911 after use. 1 each 12/29/19 25 Active EPINEPHrine (Epipen) 0.3 MG/0.3ML injection syringe Inject 0.3 mL (0.3 mg) as directed 1 (one) time for 1 dose. Inject into upper leg. Call 911 after use. 1 each 01/18/20 24 025 Discontinued(R eorder (will not trigger notification to Pharmacy)) atorvastatin (Lipitor) 80 MG tabletIndications :Mixed hyperlipidemia Take 1 tablet (80 mg) by mouth Once per day. 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 Never smoker. Not taking Statin. Did not have any side effects - just stopped taking it. Symptoms consistent with TIA, though no way to be sure at this point. Strongly discussed importance of going to ER immediately if symptoms return, even if they resolve within a few minutes. Will restart statin at previous tolerated dose and likely increase if no side effects. Will start ASA 81 mg daily. Will order MRI brain with angiogram for further evaluation. 01/2024 MRA: Urinary frequency 01/19/2024 Overview (01/19/2024): Will check UA and PSA. Muscle cramp 01/19/2024 Overview (01/19/2024): Notes a mild muscle cramp in feet/legs. Will check magnesium level. BPPV (benign paroxysmal positional vertigo) 03/12 Overview (03/30/2023): Images from the original note were not included. 04/02 ENT Routine general medical exam ination at a health care facility 05/08/2022 Overview (01/18/2024): CPE done 01/18/24. HEALTH CARE MAINTENANCE: Colonoscopy (age 45-75): [employer] is sending him Cologuard. Has cscope about 10 years ago - was normal. No family hx of colon cancer. AAA Screen (age 65-75, ever smoked): Never smoker, but has dilated cardiac aorta. LDCT (smoke >30 pack year, age 55-80): Never smoker. DEXA (age 70): Age 68. : Hesitancy: None Interruption of flow: None Dysuria: None. Hematuria: None Nocturia: x 3. Increased from once at night. Having some urgency and frequency. PSA Screenin06/2022 0.8 EYES: Gets eye injections for retinal occlusion, every 6 weeks. DENTAL: Goes every 6 months. NUTRITION: 2 meals per day. Eating vegetables and fruit, drinks milk and eats cookies. Drinking soda, 1 x 12 oz per day. EXERCISE: Active - has [address] land - lots of yardwork, watching grandkids. Hasn't been going to the gym - goal to go in the winter. IMMUNIZATIONS: Tetanus (every 10 years): 2019. Pneumococcal (age 65): Has not had. Does not want. Shingrix (age 50): Had shingles 2 years ago. COVID: Never had, does not want. FLU: Never had, does not want. Assessment & Plan (05/08/2022 9:37 AM EST): HEALTH CARE MAINTENANCE: Colonoscopy (age 45-75): Had about 5-6 years ago, unsure of where. Said 10 year follow up. AAA Screen (age 65-75, ever smoked): Never smoker. LDCT (smoke >30 pack year, age 55-80): Never smoker. DEXA (age 70): Age 66. IMMUNIZATIONS: Tetanus (every 10 years): Done 2019, due 2028. Pneumococcal (age 65): Declines. Shingrix (age 50): Declines. Had Shingles 2019. COVID: Declines, never had it. Had COVID 2020. FLU: Declines. Reviewed all health care maintenance. Pt will find out where cscope was done so we can request records. Reviewed immunizations, discussed risks/benefits of vaccination. Advised to vaccine - pt declines. Prostate cancer screening 05/08/2022 Overview (07/09/2022): 07/08/22 PSA 0.8. Assessment & Plan (07/09/2022 9:28 AM EST): Notified of normal result. Assessment & Plan (05/08/2022 9:47 AM EST): Discussed PSA screening, risks/benefits/limitations. Pt agrees to PSA screening. Cholesteatoma of both ears 05/01/2022 Overview (01/19/2024): Requesting ENT referral for evaluation. Elevated AST (SGOT) 05/01/2022 Overview (07/09/2022): 02/2022 AST 52. 07/08/22 AST 28 - WNL. Assessment & Plan (07/09/2022 9:26 AM EST): Likely related to fatty liver which improved with lifestyle modifications. Will repeat in 1 year. Assessment & Plan (05/08/2022 9:45 AM EST): Will repeat CMP. Erectile dysfunction 05/01/2022 Essential hypertension 05/01/2022 Overview (01/18/2024): BP Readings from Last 4 Encounters: 01/18/24 132/90 07/09/22 128/86 05/07/22 140/82 02/26/22 130/86 BP mildly elevated - will continue to monitor. Assessment & Plan (07/09/2022 9:21 AM EST): BP stable, slightly above goal. Pt has been making many positive lifestyle changes, does not want medication. Will continue to monitor. . Assessment & Plan (05/08/2022 9:34 AM EST): BP elevated today. Pt does not want to take medication. Is working on lifestyle modifications - going to the gym, weight loss, healthy diet choices. Reviewed low salt diet. Discussed uncontrolled HTN and impact on body. Pt declines medication - will continue lifestyle modifications. History of appendectomy 05/01/2022 Hyperlipidemia 05/01/2022 Overview (01/18/2024): 03/2022 TC 241, HDL 42, LDL 171. ASCVD Risk 16.3% 07/08/22 TC 211, HDL 41, LDL 144 ASCVD Risk 10.7% Component Ref Range & Units 1 yr ago (07/08/22) 1 yr ago (03/26/22) Cholesterol, Total (<200) MG/DL 211 High Triglyceride (mg/dL) in Serum/Plasma (<150) MG/DL 128 HDL Cholesterol (>39) MG/DL 41 42 R LDL Cholesterol, Calculated (0-130) MG/DL 144 High Non HDL Chol. (LDL+VLDL) (<160) MG/DL 170 High Not taking Atorvastatin. Due for repeat lipid level. Will restart statin. Assessment & Plan (07/09/2022 9:28 AM EST): Did not take statin, does not want to take medication. Has been making positive lifestyle modifications. Support and encouragement provided. Will repeat in 1 year. Assessment & Plan (05/08/2022 9:45 AM EST): Pt will come when fasting a week prior to next appointment to have lipid recheck. Incomplete rotator cuff tear or rupture of right shoulder, not specified as traumatic 05/01/2022 LVH (left ventricular hypertrophy) 05/01/2022 Mild dilation of ascending aorta 05/01/2022 Overview (01/28/2024): Images from the original note were not included. Previously documented without recent imaging. Will get echo. 01/22/24: AAA US: Echo done: 01/2024 Assessment & Plan (07/09/2022 9:22 AM EST): Referred to [facility] in February 2022. Was told he needs an imaging study prior to appointment - unsure of which one. Will call [facility] to find out what test is needed and order as appropriate so pt can be followed by cardiology. Obesity (BMI 35.0-39.9 without comorbidity) 04/11 Overview (07/09/2022): Initial weight 255lbs. February 2022 246lbs Today 234lbs. Assessment & Plan (07/09/2022 9:23 AM EST): Goes to gym multiple times per week. Losing inches, and some weight. Feeling strong, has more energy. Support and encouragement provided. Prediabetes 05/01/2022 Overview (01/18/2024): 02/2022 A1c 5.8% 07/08/22 5.7% Lab Results Component Value Date HGBA1C 6.0 01/18/2024 Discussed prediabetes and implications on health. Discussed healthy lifestyle - diet and exercise recommendations. Assessment & Plan (07/09/2022 9:24 AM EST): Improving. Pt making positive lifestyle changes, losing weight and exercising. Will repeat in 1 year. Assessment & Plan (05/08/2022 9:44 AM EST): See above lifestyle modifications. Offered referral to nutrition - pt declines, as his is comfortable with diet choices. Recurrent acute otitis media of both ears 2021 Chronic right shoulder pain 06/09/2017 Arthritis of left knee 12/24/2016 Encounters Date Type Department Care Team Description 12/29/2024 [facility] [address] [place] [address] Corrine Garcia MD 12/27/2024 [facility] [address] [place] [address] Melanie Blevins FNP 12/27/2024 [facility] [address] [place] [address] Melanie Blevins FNP Mixed hyperlipidemia (Primary Dx) from Last 3 Months Immunizations Immunization Administration Dates Next Due Tdap 10/29/2018,12/19/2013,11/18/2013 Family History Medical History Relation Name Comments Blood clot Brother Frontal lobe Emphysema Father Chain smoker Emphysema Mother Chain smoker Hypertrophic cardiomyopathy Sister Rashes / Skin problems Son Relation Name Status Comments Brother Father Mother Sister Son Social History Tobacco Use Types Packs/Day Years Used Date Smoking Tobacco: Never Passive Smoke Exposure: Never Smokeless Tobacco: Never Tobacco Cessation:Counseling Given: Not Answered Alcohol Use Standard Drinks/Week Comments Yes 0 [...] your housing situation today? I have leora florse 01/18/[address] you li [...] file Not on file Not on file Last Filed Vital Signs Vital Sign Reading Time Taken Comments Blood Pressure 158/70 08/30/2024 2:18 PM EDT Pulse 79 08/30/2024 2:18 PM EDT Temperature 36.6 C (97.8 F) 08/30/2024 2:18 PM EDT Respiratory Rate 16 07/09/2022 8:32 AM EST Oxygen Saturation 97% 08/30/2024 2:18 PM EDT Inhaled Oxygen Concentration - - Weight 111 kg (245 lb) 08/30/2024 2:18 PM EDT Height 170.2 cm (5' 7 ) 08/30/2024 2:18 PM EDT Body Mass Index 38.37 08/30/2024 2:18 PM EDT Plan of Treatment Health Maintenance Due Date Last Done Comments CT Colonography 1956 Colonoscopy 1956 FIT 1956 Sigmoidoscopy 1955 Influenza Vaccine (#1) 2025 Depression Screening 01/17/2025 01/18/2024, 01/18/20 24 Diabetes: Hemoglobin A1C 01/17/2025 024, 07/08/2022, 03/26/2022, Additional history exists SDOH Screening 01/17/2025 01/18/2024 FOBT 03/02/2025 03/02/2024 Alcohol/Substance Use Screening 07/05/2025 07/05/2024 Tobacco Screening 07/05/2025 07/05/2024 Colorectal Cancer Screening 03/02/2027 FIT DNA/Cologuard 03/02/2027 03/02/2024 DTaP/Tdap/Td Vaccines (4 - Td or Tdap) 10/29/2028 10/29/2018, 12/19/2013, 11/18/2013 Lipid Panel 07/05/2029 07/05/2024, 06/12, 01/18/2024, Additional history exists Hepatitis C Screening Completed 01/18/2024 COVID-19 Vaccine Discontinued HIB Vaccines Aged Out No longer eligi ble based on patient's age to complete this topic HPV Vaccines Aged Out No longer eligi ble based on patient's age to complete this topic Hepatitis A Vaccines Aged Out No long er eligible based on patient's age to complete this topic Hepatitis B Vaccines Aged Out No long er eligible based on patient's age to complete this topic IPV Vaccines Aged Out No longer eligi ble based on patient's age to complete this topic Meningococcal B Vaccine Aged Out No l onger eligible based on patient's age to complete this topic Meningococcal Vaccine Aged Out No nitesh darlyn eligible based on patient's age to complete this topic Pneumococcal Vaccine: 50+ Years Discontinued RSV Patients and Patients Aged 60 years or older Discontinued RSV under 20 months Aged Out No longe r eligible based on patient's age to complete this topic Rotavirus Vaccines Aged Out No longer eligible based on patient's age to complete this topic Zoster Vaccines Discontinued Procedures Procedure Name Priority Date/Time Associated Diagnosis Comments LIPID PANEL, STANDARD Routine 07/05/2024 8:57 AM EST HEPATITIS C VIRUS (HCV) AB CASCADE TO QNT PCR & GENOTYP Routine 01/18/2024 9:42 AM EDT Encounter for hepatitis C screening test for low risk patient POCT GLYCOSYLATED HEMOGLOBIN (HGB A1C) Routine 01/18/2024 9:38 AM EDT Prediabetes from Last 3 Months or Most Recently Relevant to Health Maintenance Results * Lipid Panel, Standard (07/05/2024 8:57 AM EST) Cholesterol, Total 162 100 - 199 mg/dL [facility] Triglycerides 136 0 - 149 mg/dL [facility] 1 HDL Cholesterol 42 >39 mg/dL [facility] 1 VLDL Cholesterol Jeff 24 5 - 40 mg/dL [facility] 1 LDL Chol Calc (NIH) 96 0 - 99 mg/dL [facility] 1 07/05/2024 8:57 AM EST 07/05/2024 Narrative [facility] 1 - 07/06/2024 2:05 PM EST Performed at: 01 - [facility] [address] [id number] Bombsight Specialist: Sushma Cat MD, Phone: [phone] Specimen Comment: A courtesy copy of this report has been sent to [phone] us Deanne Horner NP LAB BLOOD ORDERABLES Final Result [facility] * Hepatitis C Virus (HCV) Antibody [place] to Quantitative PCR and Genotyping [id number] (01/18/2024 9:42AM EDT) HCV Ab Non Reactive Non Reactive [facility] 1 Blood Venous blood specimen / Unknown 01/18/2024 9:42 AM EDT 01/18/2024 Narrative [facility] 1 - 01/19/2024 12:05 PM EDT Performed at: 01 - [facility] [address], [address], [place], [place] [id number] Bombsight Specialist: Oleg Cannon MD, Phone: [phone] Melanie ALMODOVAR LAB BLOOD ORDERABLES Final Resul t [facility] * POCT glycosylated hemoglobin (Hgb A1c) (01/18/2024 9:38 AM EDT) Hemoglobin A1C 6.0 4.0 - 6.0 % Blood Capillary blood specimen / Unknown 01/18/2024 9:38 AM EDT Melanie ALMODOVAR POINT OF CARE TEST ENTER/EDIT OR DERABLES Final Result from Last 3 Months or Most Recently Relevant to Health Maintenance Insurance [employer] [place] HMO Care Teams Wet Room Worker Relationship Specialty Start Date End Date Melanie Blevins FNP [address] [place] [address] PCP - General Family Medicine 05/02/22
--- OUTSIDE RECORDS SUMMARY | 2025-01-16 13:11 | XMS_ITS | Encounter Summary ---
Author Organization [facility] Address [facility] [employer] [facility] [address] [place] [address] Phone Care Team Providers Care Human Resources Trainee Name Role Phone Laurence Man MD Primary Care Provider Korina Tay MD Primary Care Provider [phone] Melanie Blevins NP Primary Care Provider [phone] Korina Tay MD Unavailable [phone] Encounter Details Date Type Department Care Team (Late st Contact Info) Description 06/30/2017 Procedure Pass [facility]Outside Imaging [address] [place], [place] [id number] Social History Tobacco Use Types Packs/Day Years [...] Description 03/13/2025 8:30 AM EST Office Visit [facility] Neurology [address] [place] [address] Tino Tobias MD [address] [place] [address], [address]nd [place] [address] [email or web address] documented as of this encounter Visit Diagnoses Not on filedocumented in this encounter Additional Health Concerns Infection Onset Date Last Indicated Resolved Time CoV-Risk 06/27/2024 06/27/2024 07/08/2024 1:21 AM EST documented as of this encounter Care Teams Human Resources Trainee Relationship Specialty Start Date End Date Laurence Man MD PCP - General Internal Medicine 04/08/17 06/26/24 Korina Tay MD [address] [place] [address] [email or web address] PCP - General Pediatrics 06/27/24 08/30/24 Melanie Blevins NP [address] [place] [address] PCP - General Nurse Practitioner 08/31/24 Korina Tay MD [address] [place] [address] [email or web address] Insurance Assigned Provider Pediatrics 09/12/24 documented as of this encounter Additional Source Comments The information contained in this document represents components of the legal health record. It is not the complete legal health record.[facility]
--- OUTSIDE RECORDS SUMMARY | 2025-01-16 13:11 | XMS_ITS | Encounter Summary ---
Author Organization [facility] Address [facility] [employer] [facility] [address] [place] [address] Phone Care Team Providers Care Chemical Dependency Therapist Name Role Phone Laurence Man MD Primary Care Provider Korina Tay MD Primary Care Provider [phone] Melanie Blevins NP Primary Care Provider [phone] Korina Tay MD Unavailable [phone] Encounter Details Date Type Department Care Team (Late st Contact Info) Description 04/08/2017 Procedure Pass [facility] [address] [facility], 6th [place] [address] Social History Tobacco Use Types Packs/Day Years [...] Description 03/13/2025 8:30 AM EST Office Visit [facility] Neurology [address] [place] [address] Tino Tobias MD [address] [place] [address], 2nd [place] [address] [email or web address] documented as of this encounter Visit Diagnoses Not on filedocumented in this encounter Additional Health Concerns Infection Onset Date Last Indicated Resolved Time CoV-Risk 06/27/2024 06/27/2024 07/08/2024 1:21 AM EST documented as of this encounter Care Teams Chemical Dependency Therapist Relationship Specialty Start Date End Date Laurence Man MD PCP - General Internal Medicine 04/08/17 06/26/24 Korina Tay MD [address] [place] [address] [email or web address] PCP - General Pediatrics 06/27/24 08/30/24 Melanie Blevins NP [address] [place] [address] PCP - General Nurse Practitioner 08/31/24 oKrina Tay MD [address] [place] [address] [email or web address] Insurance Assigned Provider Pediatrics 09/12/24 documented as of this encounter Additional Source Comments The information contained in this document represents components of the legal health record. It is not the complete legal health record.[facility]
== END 2025-01-16 11:53 | disposition home or self-care (01) ==
LOC: HO.HMCFM 10:51
PROVIDERS: PCP Internal Medicine; Visit Provider Physician Assistant Medical
DX: E78.00 Pure hypercholesterolemia, unspecified (principal); R73.03 Prediabetes; E66.812 Obesity, class 2; Z68.38 Body mass index [BMI] 38.0-38.9, adult; Z86.69 Personal history of other diseases of the nervous system and sense organs; R03.0 Elevated blood-pressure reading, without diagnosis of hypertension

== ENCOUNTER → 2025-01-16 10:50 | Outpatient (BNVA) | payer MEDICARE, SELFPAY | PROVIDERS: PCP Internal Medicine; Visit Provider Physician Assistant Medical | DX: Z76.89 Persons encountering health services in other specified circumstances (principal); E78.00 Pure hypercholesterolemia, unspecified; R73.03 Prediabetes; E66.812 Obesity, class 2; Z68.38 Body mass index [BMI] 38.0-38.9, adult; R03.0 Elevated blood-pressure reading, without diagnosis of hypertension; H34.9 Unspecified retinal vascular occlusion; Z86.69 Personal history of other diseases of the nervous system and sense organs; Z79.82 Long term (current) use of aspirin; Z79.899 Other long term (current) drug therapy; Z96.653 Presence of artificial knee joint, bilateral; Z13.31 Encounter for screening for depression | CPT/HCPCS: 96127; 99202 ==

== ENCOUNTER 2025-01-19 08:12 | Outpatient (REF) | payer MEDICARE, SELFPAY ==
--- OUTSIDE RECORDS SUMMARY | 2025-01-19 09:06 | XMS_ITS | Encounter Summary ---
Author Organization [facility] Address [address] [place] [address] Phone Care Team Providers Care Digital Marketing Intern Name Role Phone Laurence Man MD Primary Care Provider Korina Tay MD Primary Care Provider [phone] Melanie Blevins NP Primary Care Provider [phone] Korina Tay MD Unavailable [phone] Encounter Details Date Type Department Care Team (Late st Contact Info) Description 07/10/2017 Procedure Pass [place] Admitting Dept - Virtual Department [address] [place] [address] Social History Tobacco Use Types Packs/Day Years [...] Description 03/13/2025 8:30 AM EST Office Visit [facility] Neurology [address] [place] [address] Tino Tobias MD [address] [place] [address], [address] [place] [address] [email or web address] documented as of this encounter Visit Diagnoses Not on filedocumented in this encounter Additional Health Concerns Infection Onset Date Last Indicated Resolved Time CoV-Risk 06/27/2024 06/27/2024 07/08/2024 1:21 AM EST documented as of this encounter Care Teams Digital Marketing Intern Relationship Specialty Start Date End Date Laurence Man MD PCP - General Internal Medicine 04/08/17 06/26/24 Korina Tay MD [address] [place] [address] [email or web address] PCP - General Pediatrics 06/27/24 08/30/24 Melanie Blevins NP [address] [place] [address] PCP - General Nurse Practitioner 08/31/24 Korina Tay MD [address] [place] [address] [email or web address] Insurance Assigned Provider Pediatrics 09/12/24 documented as of this encounter Additional Source Comments The information contained in this document represents components of the legal health record. It is not the complete legal health record.[facility]
--- OUTSIDE RECORDS SUMMARY | 2025-01-19 09:06 | XMS_ITS | Encounter Summary ---
Author Organization [facility] Address [address] [facility] [address] [place] [address] Phone Care Team Providers Care Hand Rug Braider Name Role Phone Laurence Man MD Primary Care Provider Laurence Man MD Primary Care Provider [phone] Korina Tay MD Primary Care Provider [phone] Melanie Blevins NP Primary Care Provider [phone] Korina Tay MD Unavailable [phone] Encounter Details Date Type Department Care Team (Late Contact Info) Description 12/24/2016 Procedure Pass [facility] PERIOPERATIVE DEPT [address] [place] [phone] Social History Tobacco Use Types Packs/Day Years [...] Visit [facility] Neurology [address] [place] [address] Tino Tobias MD [address] [facility], 2nd [place] [address] documented as of this encounter Visit Diagnoses Not on filedocumented in this encounter Additional Health Concerns Infection Onset Date Last Indicated Resolved Time CoV-Risk 06/27/2024 06/27/2024 07/08/2024 1:21 AM EST documented as of this encounter Care Teams Hand Rug Braider Relationship Specialty Start Date End Date Laurence Man MD PCP - General Internal Medicine 10/27/16 04/07/17 Laurence Man MD PCP - General Internal Medicine 04/08/17 06/26/24 Korina Tay MD [address] [place] [phone] [email or web address] PCP - General Pediatrics 06/27/24 08/30/24 Melanie Blevins NP [address] [place] [address] PCP - General Nurse Practitioner 08/31/24 Korina Tay MD [address] [place] [phone] [email or web address] Insurance Assigned Provider Pediatrics 09/12/24 documented as of this encounter Additional Source Comments The information contained in this document represents components of the legal health record. It is not the complete legal health record.[facility]
--- OUTSIDE RECORDS SUMMARY | 2025-01-19 09:06 | XMS_ITS | Clinical Summary ---
Author Organization [employer] Address [address] [facility] 7t [place] [address] Care Team Providers Care Life Skills Instructor Name Role Phone Melanie Blevins NISHI Primary Care Provider [phone] Allergies Active Allergy Reactions Criticality Noted Date [...] Plan (07/09/2022 9:22 AM EST): Referred to [facility] in February 2022. Was told he needs an imaging study prior to appointment - unsure of which one. Will call [facility] to find out what test is needed [...] Date Type Department Care Team Description 12/29/2024 [facility] [address] [place] [address] Corrine Garcia MD 12/27/2024 [facility] [address] [place] [address] Melanie Blevins FNP 12/27/2024 [facility] [address] [place] [address] Melanie Blevins FNP Mixed hyperlipidemia (Primary Dx) [...] EST Performed at: 01 - [facility] [address] [id number] Hog Confinement System Manager: Sushma Cat MD, Phone: [phone] Specimen Comment: A courtesy copy of this report has been sent to [phone] us Deanne Horner NP LAB BLOOD ORDERABLES Final Result [facility] * Hepatitis C Virus (HCV) Antibody [place] to Quantitative PCR and Genotyping [id number] (01/18/2024 9:42AM EDT) HCV Ab Non Reactive Non Reactive [facility] 1 Blood Venous blood specimen / Unknown 01/18/2024 9:42 AM EDT 01/18/2024 Narrative [facility] 1 - 01/19/2024 12:05 PM EDT Performed at: 01 - [facility] [address] [address], [address], [place], [place] [id number] Hog Confinement System Manager: Oleg Cannon MD, Phone: [phone] Melanie ALMODOVAR LAB BLOOD ORDERABLES Final Resul [...] [employer] HMO Care Teams Life Skills Instructor Relationship Specialty Start Date End Date Melanie Blevins FNP [address] [place] [address] PCP - General Family Medicine 05/02/22
--- OUTSIDE RECORDS SUMMARY | 2025-01-19 09:06 | XMS_ITS | Clinical Summary ---
Author Organization [facility] Address [address] [place] [address] Care Team Providers Care Grader Patrol Name Role Phone Unavailable Primary Care Provider Unavailabl e Social History Tobacco Use Types Packs/Day Years Used Date Smoking Tobacco: Never Assessed Sex and Gender Information Value Date Recorded Sex Assigned at Not on file Gender Identity Not on file Sexual Orientation Not on file Plan of Treatment Not on file
--- OUTSIDE RECORDS SUMMARY | 2025-01-19 09:06 | XMS_ITS | Encounter Summary ---
Author Organization [facility] Address [address] [place] [address] [place] [address] Phone Care Team Providers Care Hose Stripper Name Role Phone Laurence Man MD Primary Care Provider Korina Tay MD Primary Care Provider [phone] Melanie Blevins NP Primary Care Provider Korina Tay MD Unavailable [phone] Reason for Referral * Outpatient Procedure - Closed Specialty Diagnoses / Procedures Referred By Contac t Referred To Contact Radiology Diagnoses Mild dilation of ascending aorta Procedures US Abdominal Aortic Screening Melanie Blevins NP Phone: tel: fax: Referral ID Status Reason Start Date Expiration Date Visits Re quested Visits Authorized [id number] Closed 01/18/2024 01/17/2025 1 1 * Outpatient Procedure - Closed Specialty Diagnoses / Procedures Referred By Contac t Referred To Contact Radiology Diagnoses Mild dilation of ascending aorta Procedures Adult Echo TTE Melanie Blevins NP Phone: tel: fax: Referral ID Status Reason Start Date Expiration Date Visits Re quested Visits Authorized [id number] Closed 01/18/2024 01/17/2025 1 1 Encounter Details Date Type Department Care Team (Latest Contact Info) Description 01/18/2024 Transcribe Orders Virtual Department 30 [place] [address] Melanie Blevins NP 73 [place] [address] Mild dilation of ascending aorta (Primary Dx) [...] Description 03/13/2025 8:30 AM EST Office Visit [facility] Neurology 22 [place] [address] Tino Tobias MD 22 [facility], 2nd [place] [address] [email or web address] documented as of this encounter Results * [...] proximal common iliac arteryaneurysm. 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 documented in this encounter Additional Health Concerns Infection Onset Date Last Indicated Resolved Time CoV-Risk 06/27/2024 06/27/2024 07/08/2024 1:21 AM EST documented as of this encounter Care Teams Hose Stripper Relationship Specialty Start Date End Date Laurence Man MD PCP - General Internal Medicine 04/08/17 06/26/24 Korina Tay MD [address] [place] [address] [email or web address] PCP - General Pediatrics 06/27/24 08/30/24 Melanie Blevins NP 73 [place] [address] PCP - General Nurse Practitioner 08/31/24 Korina Tay MD [address] [place] [address] [email or web address] Insurance Assigned Provider Pediatrics 09/12/24 documented as of this encounter Additional Source Comments The information contained in this document represents components of the legal health record. It is not the complete legal health record.[facility]
--- OUTSIDE RECORDS SUMMARY | 2025-01-19 09:06 | XMS_ITS | Encounter Summary ---
Author Organization [employer] Address 75 [facility] 7t [place] [address] Care Team Providers Care Certified Residential Medication Aide Name Role Phone Melanie Blevins NISHI Primary Care Provider [phone] Reason for Visit * Reason Onset Date Comments Med Refill 12/29/2024 Encounter Details Date Type Department Care Team (Late st Contact Info) Description 12/29/2024 Refill [place] [facility] 73 [place] [address] Corrine Garcia MD 70 [place] [address] Social History Tobacco Use Types Packs/Day Years [...] the past 12 months, has t he [employer], gas, oil or water company threatened to [...] on filedocumented in this encounter Care Teams Certified Residential Medication Aide Relationship Specialty Start Date End Date Melanie Blevins FNP [address] [place] [address] PCP - General Family Medicine 05/02/22 documented as of this encounter
--- OUTSIDE RECORDS SUMMARY | 2025-01-19 09:06 | XMS_ITS | Encounter Summary ---
Author Organization [employer] Address 75 [facility] 7 [place] [address] Care Team Providers Care Oil Separator Name Role Phone Melanie Blevins Primary Care Provider [phone] Reason for Visit * Reason Onset Date Comments Med Refill 12/27/2024 Encounter Details Date Type Department Care Team (Late st Contact Info) Description 12/27/2024 Refill Alyssia [facility] [address] [place] [address] Melanie Blevins FNP 73 [place] [address] Social History Tobacco Use Types Packs/Day Years [...] on filedocumented in this encounter Care Teams Oil Separator Relationship Specialty Start Date End Date Melanie Blevins FNP [address] [place] [address] PCP - General Family Medicine 05/02/22 documented as of this encounter
--- OUTSIDE RECORDS SUMMARY | 2025-01-19 09:06 | XMS_ITS | Encounter Summary ---
Author Organization [facility] Address [address] [facility] [address] [place] [address] Phone Care Team Providers Care Uniform Room Attendant Name Role Phone Laurence Man MD Primary Care Provider Laurence Man MD Primary Care Provider [phone] Korina Tay MD Primary Care Provider Melanie Blevins NP Primary Care Provider Korina Tay MD Unavailable [phone] Encounter Details Date Type Department Care Team (Late st Contact Info) Description 12/11/2016 Prep for Surgery Mitch Pederson MD 1 [facility] [address] [place] [address] [place] [address] [email or web address] Social History Tobacco Use Types Packs/Day Years [...] Description 03/13/2025 8:30 AM EST Office Visit [facility] Neurology [address] [place] [address] Tino Tobias MD 22 [facility], 2nd [place] [address] documented as of this encounter Visit Diagnoses Not on filedocumented in this encounter Additional Health Concerns Infection Onset Date Last Indicated Resolved Time CoV-Risk 06/27/2024 06/27/2024 07/08/2024 1:21 AM EST documented as of this encounter Care Teams Uniform Room Attendant Relationship Specialty Start Date End Date Laurence Man MD PCP - General Internal Medicine 10/27/16 04/07/17 Laurence Man MD PCP - General Internal Medicine 04/08/17 06/26/24 Korina Tay MD [address] [place] [address] [email or web address] PCP - General Pediatrics 06/27/24 08/30/24 Melanie Blevins NP [address] [place] [address] PCP - General Nurse Practitioner 08/31/24 Korina Tay MD [address] [place] [address] [email or web address] Insurance Assigned Provider Pediatrics 09/12/24 documented as of this encounter Additional Source Comments The information contained in this document represents components of the legal health record. It is not the complete legal health record.[facility]
--- OUTSIDE RECORDS SUMMARY | 2025-01-19 09:06 | XMS_ITS | Encounter Summary ---
Author Organization [facility] Address [facility] [employer] [facility] [address] [place] [address] Phone Care Team Providers Care Contract Programmer Name Role Phone Laurence Man MD Primary Care Provider Korina Tay MD Primary Care Provider [phone] Melanie Blevins NP Primary Care Provider [phone] Korina Tay MD Unavailable [phone] Encounter Details Date Type Department Care Team (Late st Contact Info) Description 06/30/2017 Procedure Pass [facility],Outside Imaging 30 [place], [place] [id number] Social History Tobacco Use Types Packs/Day Years [...] Author No 12/25/2016 3:40 PM EDT Basilia eYe NP * Patient has serious difficulty walking [...] Description 03/13/2025 8:30 AM EST Office Visit [facility] Neurology [address] [place] [address] Tino Tobias MD [address] [place] [address], 2nd [place] [address] [email or web address] documented as of this encounter Visit Diagnoses Not on filedocumented in this encounter Additional Health Concerns Infection Onset Date Last Indicated Resolved Time CoV-Risk 06/27/2024 06/27/2024 07/08/2024 1:21 AM EST documented as of this encounter Care Teams Contract Programmer Relationship Specialty Start Date End Date Laurence Man MD PCP - General Internal Medicine 04/08/17 06/26/24 Korina Tay MD 73 [place] [address] [email or web address] PCP - General Pediatrics 06/27/24 08/30/24 Melanie Blevins NP 73 [place] [address] PCP - General Nurse Practitioner 08/31/24 Korina Tay MD [address] [place] [address] [email or web address] Insurance Assigned Provider Pediatrics 09/12/24 documented as of this encounter Additional Source Comments The information contained in this document represents components of the legal health record. It is not the complete legal health record.[facility]
--- OUTSIDE RECORDS SUMMARY | 2025-01-19 09:06 | XMS_ITS | Encounter Summary ---
Author Organization [facility] Address [address] [facility] [address] [place] [address] Phone Care Team Providers Care Gluten Settling Tender Name Role Phone Laurence Man MD Primary Care Provider [phone] Korina Tay MD Primary Care Provider [phone] Melanie Blevins NP Primary Care Provider [phone] Korina Tay MD Unavailable [phone] Encounter Details Date Type Department Care Team (Late st Contact Info) Description 01/18/2024 Procedure Pass [facility] 30 [place] [address] Social History Tobacco Use Types Packs/Day Years [...] Description 03/13/2025 8:30 AM EST Office Visit [facility] Neurology [address] [place] [address] Tino Tobias MD [address] [place] [address], 2[address] [place] [address] [email or web address] documented as of this encounter Visit Diagnoses Not on filedocumented in this encounter Additional Health Concerns Infection Onset Date Last Indicated Resolved Time CoV-Risk 06/27/2024 06/27/2024 07/08/2024 1:21 AM EST documented as of this encounter Care Teams Gluten Settling Tender Relationship Specialty Start Date End Date Laurence Man MD PCP - General Internal Medicine 04/08/17 06/26/24 Korina Tay MD 73 [place] [address] [email or web address] PCP - General Pediatrics 06/27/24 08/30/24 Melanie Blevins NP [address] [place] [address] PCP - General Nurse Practitioner 08/31/24 Korina Tay MD [address] [place] [address] [email or web address] Insurance Assigned Provider Pediatrics 09/12/24 documented as of this encounter Additional Source Comments The information contained in this document represents components of the legal health record. It is not the complete legal health record.[facility]
--- OUTSIDE RECORDS SUMMARY | 2025-01-19 09:06 | XMS_ITS | Clinical Summary ---
Author Organization [facility] Address [address] [place] [address] Phone Care Team Providers Care Design Eng Name Role Phone Melanie Blevins NP Primary Care Provider [phone] Korina Tay MD Unavailable [phone] Allergies Active Allergy Reactions Criticality Noted [...] mg by mouth. 4 01/18/20 25 Active Problems Problem Noted Date Diagnosed Date [...] Description 03/13/2025 8:30 AM EST Office Visit [facility] Neurology [address] [place] [address] Tino Tobias MD 22 [facility], 2nd [place] [address] [email or web address] Health Maintenance Due Date Last Done Comments [...] this topic Medical Devices Implanted Type Area Machine Tool Mechanic Device Identifier Shelf Expiration Date Model / Serial / Lot Joint Replacement Right: Knee Knee Baseplate Xr Journey Ii Sz 5 Lt 1 - [id number] Implanted:Qty: 1 on 12/24/2016 by Mitch Pederson MD at [facility] Left: Knee MARIE 12/07/2025 [id number] / / [id number] Knee Femoral Journey Ii Oxinium Cruciate Retaining Director Of Solutions Architecture Left Sz5 - [id number] Implanted:Qty: 1 on 12/24/2016 by Mitch Pederson MD at [facility] Left: Knee MARIE 10/06/2026 [id number] / / [id number] Knee Insert Xr Xlpe Journey Ii Lat 5-6 Lt 9mm 1 - [id number] Implanted:Qty: 1 on 12/24/2016 by Mitch Pederson MD at [facility] Left: Knee MARIE 09/18/2025 [id number] / / [id number] Knee Insert Xr Xlpe Jourgary Ii Med 5-6 Lt 9mm 1 - [id number] Implanted:Qty: 1 on 12/24/2016 by Mitch Pederson MD at [facility] Left: Knee SALAZAR 06/24/2025 [id number] / / [id number] Knee Component Patella Std 35mm Resurfacing Round Yeimi Knee 06 - [id number] Implanted:Qty: 1 on 12/24/2016 by Mitch Pederson MD at [facility] Left: Knee SALAZAR 10/13/2026 [id number] / / [id number] Cement Bone 40gr Palacos R Single Dose Bx/1bo/1ea - [id number] Implanted:Qty: 2 on 12/24/2016 by Mitch Pederson MD at [facility] Left: Knee DIANA / DIV OF [employer] 07/08/2021 [id number] / / [id number] [place] Suture 4.5mm Arthroscopy Reelx Stt Peek Stainless Steel Core Knotless Sharp Tip Expandable Sterile Bx/5ea - [id number] Implanted:Qty: 1 on 07/10/2017 by Venu Lazcano DO at [facility] Right: Shoulder [employer] 04/20/2019 [id number] / / [id number] Insurance [place] BLUE [place] MEDICARE PART A & [place] BL[place] MEDICARE PART A & B [facility] MEDICARE HMO BLUE REPLACEMENT MEDICARE PART A & B Member Subscriber Plan / Payer (Ef fective 2021-Present) Name:Blas Ortez Member ID:[id number] Relation to Subscriber:Self Name:Blas Ortez Subscriber ID:[id number] Payer ID:[id number] Group ID:Not on file Type:Medicare Address: [employer] [address] [place]UE [place] MEDICARE PART A & B Member Subscriber Plan / Payer (Ef fective 2021-Present) Name:Blas Ortez Member ID:[id number] Relation to Subscriber:Self Name:Blas Ortez Subscriber ID:[id number] Payer ID:[id number] Group ID:Not on file Type:Medicare Address: [employer] [address] [place]UE [place] MEDICARE PART A & B [place] MEDICARE PART A & B Advance Directives For more information, please contact: [phone] (9AM - 5PM [facility], Thursday-Thursday) * Full Code (Presumed) (Latest Code Status on File) Date Activated Date Inactivated Comments 07/10/2017 8:43 AM 07/10/2017 4:07 PM * Full Code (Presumed) Date Activated Date Inactivated Comments 12/24/2016 8:52 PM 12/26/2016 10:45 AM * Full Code (Presumed) Date Activated Date Inactivated Comments 12/24/2016 12:34 PM 12/24/2016 8:52 PM Care Teams Design Eng Relationship Specialty Start Date End Date Melanie Blevins NP PCP - General Nurse Practitioner 08/31/24 Korina Tay MD [address] [place] [address] [email or web address] Insurance Assigned Provider Pediatrics 09/12/24 Additional Source Comments The information contained in this document represents components of the legal health record. It is not the complete legal health record.[facility]
--- OUTSIDE RECORDS SUMMARY | 2025-01-19 09:06 | XMS_ITS | Encounter Summary ---
Author Organization [facility] Address [facility] [address] [place] [address] Phone Care Team Providers Care Ground Instructor Basic Name Role Phone Laurence Man MD Primary Care Provider Korina Tay MD Primary Care Provider Melanie Blevins NP Primary Care Provider [phone] Korina Tay MD Unavailable [phone] Encounter Details Date Type Department Care Team (Late st Contact Info) Description 04/08/2017 Procedure Pass [facility] [address] [facility], 6th [place] [address] Social History Tobacco Use Types Packs/Day Years [...] Description 03/13/2025 8:30 AM EST Office Visit [facility] Neurology [address] [place] [address] Tino Tobias MD [address] [place] [address], 2nd [place] [address] [email or web address] documented as of this encounter Visit Diagnoses Not on filedocumented in this encounter Additional Health Concerns Infection Onset Date Last Indicated Resolved Time CoV-Risk 06/27/2024 06/27/2024 07/08/2024 1:21 AM EST documented as of this encounter Care Teams Ground Instructor Basic Relationship Specialty Start Date End Date Laurence Man MD PCP - General Internal Medicine 04/08/17 06/26/24 Korina Tay MD [address] [place] [address] [email or web address] PCP - General Pediatrics 06/27/24 08/30/24 Melanie Blevins NP [address] [place] [address] PCP - General Nurse Practitioner 08/31/24 Korina Tay MD [address] [place] [address] [email or web address] Insurance Assigned Provider Pediatrics 09/12/24 documented as of this encounter Additional Source Comments The information contained in this document represents components of the legal health record. It is not the complete legal health record.[facility]
[2025-01-19 11:40] LABS: Hematocrit 43.8 % (42.0-52.0); Hemoglobin 14.7 g/dl (14.0-18.0); Mean Corpuscular HGB Conc 33.6 g/dl (31.0-36.0); Mean Corpuscular Hemoglobin 29.9 pg (27.0-33.0); Mean Corpuscular Volume 89.2 fL (80.0-98.0); NRBC Abs Auto 0.000 X10*3/uL (0.0-0.012); NRBC Pct Auto 0.0 /100WBC (0.0-0.2); Platelet Count 155 X10*3/uL (160-400); Red Blood Count 4.91 X10*6/uL (4.60-5.80); White Blood Count 7.5 X10*3/uL (4.8-10.8)
[2025-01-19 11:47] LABS: Hemoglobin A1C 153.2657 umol/L; Total Hemoglobin (HGBA1C) 3821.9448 umol/L
[2025-01-19 12:07] LABS: Alanine Aminotransferase 32 U/L (0-40); Albumin Level 4.4 g/dL (3.5-5.0); Alkaline Phosphatase 60 U/L (39-117); Anion Gap 14 (12-20); Aspartate Amino Transferase 39 U/L (5-37); Blood Urea Nitrogen 15 mg/dL (9-16); Calcium 9.0 mg/dL (8.4-10.2); Carbon Dioxide 28 mmol/L (22-29); Chloride 103 mmol/L (96-108); Cholesterol 139 mg/dL (<200); Estimated Glomerular Filt Rate > 60; HDL Cholesterol 40 mg/dL (>40); Potassium 3.5 mmol/L (3.3-5.1); Sodium 141 mmol/L (135-145); Total Protein 7.0 g/dL (6.5-8.0); Triglycerides 101 mg/dL (<150)
[2025-01-19 12:20] LABS: Prostate Specific Antigen 0.91 ng/mL (<0.05-4.0)
[2025-01-19 12:25] LABS: Microalbum/Creatinine Ratio Ur 60.2 ug/mg cr (<30)
== END 2025-01-19 08:13 | disposition home or self-care (01) ==
LOC: HO.WFDLDS 08:12
PROVIDERS: Visit Provider Physician Assistant Medical
DX: R73.03 Prediabetes (principal); E78.5 Hyperlipidemia, unspecified; R73.9 Hyperglycemia, unspecified; Z12.5 Encounter for screening for malignant neoplasm of prostate
CPT/HCPCS: 36415; 80053; 80061; 82043; 82570; 83036; 84153; 84443; 85027

== ENCOUNTER 2025-04-11 10:53 | Outpatient (REF) | payer MEDICARE, SELFPAY ==
--- OUTSIDE RECORDS SUMMARY | 2025-04-11 12:47 | XMS_ITS | Clinical Summary ---
Author Organization [facility] Address [address] [place] [address] Care Team Providers Care Mechanical Engineering Lecturer Name Role Phone Unavailable Primary Care Provider Unavailabl e Social History Tobacco Use Types Packs/Day Years Used Date Smoking Tobacco: Never Assessed Sex and Gender Information Value Date Recorded Sex Assigned at Not on file Gender Identity Not on file Sexual Orientation Not on file Plan of Treatment Not on file
--- OUTSIDE RECORDS SUMMARY | 2025-04-11 12:48 | XMS_ITS | Encounter Summary ---
Author Organization [employer] Address [address] [facility] 7t [place] [address] Care Team Providers Care Lining Stitcher Name Role Phone Melanie Blevins NP Primary Care Provider Willow Garcia DO Primary Care Provider [phone] PcpAlyssia Unassigned Primary Care Provider U navailable Reason for Visit * Reason Onset Date Comments Med Refill 12/29/2024 Encounter Details Date Type Department Care Team (Late st Contact Info) Description 12/29/2024 Refill Alyssia [facility] [address] [place] [address] Corrine Garcia MD [address] [place] [address] Social History Tobacco Use Types Packs/Day Years [...] t he electric, gas, oil or water [employer] threatened to shut off services in your [...] on filedocumented in this encounter Care Teams Lining Stitcher Relationship Specialty Start Date End Date Melanie Blevins NP PCP - General Family Medicine 05/02/22 02/21/25 Willow Bajwa DO [address] [place] [address] PCP - General Shank Piece Tacker 02/22/25 03/05/25 Alyssia Wilks Unassigned PCP - General Family Medicine 03/06/25 documented as of this encounter
--- OUTSIDE RECORDS SUMMARY | 2025-04-11 12:48 | XMS_ITS | Encounter Summary ---
Author Organization [facility] Address [address] [place] [address] [place] [address] Phone Care Team Providers Care Sample Driller Name Role Phone Laurence Man MD Primary Care Provider Korina Tay MD Primary Care Provider Melanie Blevins NP Primary Care Provider Korina Tay MD Unavailable [phone] Bita Mcallister Primary Care Provide r Reason for Referral * Outpatient Procedure - Closed Specialty Diagnoses / Procedures Referred By Emmanuel t Referred To Contact Radiology Diagnoses Mild dilation of ascending aorta Procedures US Abdominal Aortic Screening Melanie Blevins NP Phone: tel: fax: Referral ID Status Reason Start Date Expiration Date Visits Re quested Visits Authorized [id number] Closed 01/18/2024 01/17/2025 1 1 * Outpatient Procedure - Closed Specialty Diagnoses / Procedures Referred By Contreuben t Referred To Contact Radiology Diagnoses Mild dilation of ascending aorta Procedures Adult Echo TTE Melanie Blevins NP Phone: tel: fax: Referral ID Status Reason Start Date Expiration Date Visits Re quested Visits Authorized [id number] Closed 01/18/2024 01/17/2025 1 1 Encounter Details Date Type Department Care Team (Latest Contact Info) Description 01/18/2024 Transcribe Orders Virtual Department 30 [place] [address] Melanie Blevins NP [address] [place] [address] Mild dilation of ascending aorta (Primary Dx) [...] on file documented as of this encounter Results * [...] comparison. IAS/IVS The interatrial septum appears normal. Melanie Blevins NP CV ECHO ORDERABLES Final Result * US Abdominal Aortic Screening (01/21/2024 10:34 AM EDT) Anatomical Region Laterality Modality Abdomen Ultrasound 01/21/2024 10:3 5 AM EDT Narrative 01/22/2024 12:33 PM EDT US ABDOMINAL AORTIC SCREENING Referring clinician's provided indication for this examination in [facility]: Outside Radiology Order; ascending aorta TECHNIQUE: A [...] proximal common iliac arteryaneurysm. 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 documented in this encounter Additional Health Concerns Infection Onset Date Last Indicated Resolved Time CoV-Risk 06/27/2024 06/27/2024 07/08/2024 1:21 AM EST documented as of this encounter Care Teams Sample Driller Relationship Specialty Start Date End Date Laurence Man MD PCP - General Internal Medicine 04/08/17 06/26/24 Korina aTy MD [address] [place] [address] [email or web address] PCP - General Pediatrics 06/27/24 08/30/24 Melanie Blevins NP [address] [place] [address] PCP - General Nurse Practitioner 08/31/24 03/12/25 Bita Mcallister PA [address] [place] [address] PCP - General Physician Language Translator 03/13/25 Korina Tay MD [address] [place] [address] [email or web address] Insurance Assigned Provider Pediatrics 09/12/24 documented as of this encounter Additional Source Comments The information contained in this document represents components of the legal health record. It is not the complete legal health record.[facility]
--- OUTSIDE RECORDS SUMMARY | 2025-04-11 12:48 | XMS_ITS | Encounter Summary ---
Author Organization [employer] Address [address] [facility] 7 [place] [address] Care Team Providers Care Tube Man Name Role Phone Melanie Blevins NP Primary Care Provider Willow Garcia DO Primary Care Provider [phone] PcpAlyssia Unassigned Primary Care Provider U navailable Reason for Visit * Reason Onset Date Comments Med Refill 12/27/2024 Encounter Details Date Type Department Care Team (Late st Contact Info) Description 12/27/2024 Refill Alyssia [facility] [address] [place] [address] Melanie Blevins NP Social History Tobacco Use Types Packs/Day Years [...] on filedocumented in this encounter Care Teams Tube Man Relationship Specialty Start Date End Date Melanie Blevins NP PCP - General Family Medicine 05/02/22 02/21/25 Willow Bajwa DO [address] [place] [address] PCP - General Explosives Mixer Operator 02/22/25 03/05/25 Alyssia Wilks Unassigned PCP - General Family Medicine 03/06/25 documented as of this encounter
--- OUTSIDE RECORDS SUMMARY | 2025-04-11 12:48 | XMS_ITS | Clinical Summary ---
Author Organization [facility] Address [address] [place] [address] Phone Care Team Providers Care Sand Slinger Operator Name Role Phone Korina Tay MD Unavailable [phone] Bita Mcallister Primary Care Provide r Allergies Active Allergy Reactions Criticality Noted Date [...] MG EC tablet Take 81 mg by mouth daily. Active Active Problems Problem Noted Date Diagnosed Date History of repair of right rotator cuff 07/31/19 19 Chronic right shoulder pain 06/09/2017 Arthritis of left knee 12/24/2016 Encounters Date Type Department Care Team Description 03/13/2025 8:30 AM EST Office Visit [facility] Neurology [address] [place] [address] Tino Tobias MD Transient ischemic attack (TIA) (Primary Dx); Memory changes from Last 3 Months Family History Medical History Relation Comments No [...] Sign Reading Time Taken Comments Blood Pressure 130/80 03/13/2025 8:19 AM EST Pulse 69 03/13/2025 8:19 AM EST Temperature 36.8 C (98.3 F) 06/27/2024 9:23 AM EST Respiratory Rate 16 06/27/2024 9:23 AM EST Oxygen Saturation 99% 03/13/2025 8:19 AM EST Inhaled Oxygen Concentration - - Weight 104.3 kg (229 lb 15 oz) 02/10/2018 8:23 A M EDT Height 170.2 cm (5' 7.01 ) 02/10/2018 8:23 AM ED T Body Mass Index 36.01 02/10/2018 8:23 AM EDT Plan of Treatment Health Maintenance Due Date Last Done Comments DEPRESSION SCREENING 1968 HEPATITIS C SCREENING 1974 COLONOSCOPY 2001 FIT TEST 2001 FOBT 2001 SIGMOIDOSCOPY 2001 VIRTUAL COLONOSCOPY 2001 PNEUMOCOCCAL VACCINES (50+ years) (1 of 1 - PCV) 2006 ZOSTER VACCINES (1 of 2) 2006 INFLUENZA VACCINE (#1) 2024 COVID-19 VACCINE (1 - 2024-2 6 season) 2025 COLOGUARD 03/02/2027 03/02/2024 COLORECTAL CANCER SCREENING 03/02/2027 Adult Td,Tdap Booster 10/29/2028 10/29/2018 , 12/19/2013, 11/18/2013 LIPID PANEL 07/05/2029 07/05/2024, 01/18/2024 RSV VACCINE (1 - 1-dose 75+ series) 11/25/2031 SMOKING STATUS SCREENING (On ce After 26 [...] this topic Medical Devices Implanted Type Area Media Operator Device Identifier Shelf Expiration Date Model / Serial / Lot Joint Replacement Right: Knee Knee Baseplate Xr Journey Ii Sz 5 Lt 1 - [id number] Implanted:Qty: 1 on 12/24/2016 by Mitch Pederson MD at [facility] Left: Knee SALAZAR 12/07/2025 [id number] / / [id number] Knee Femoral Journey Ii Oxinium Cruciate Retaining Loan Teller Left Sz5 - [id number] Implanted:Qty: 1 on 12/24/2016 by Mitch Pederson MD at [facility] Left: Knee SALAZAR 10/06/2026 [id number] / / [id number] Knee Insert Xr Xlpe Journey Ii Lat 5-6 Lt 9mm 1 - [id number] Implanted:Qty: 1 on 12/24/2016 by Mitch Pederson MD at [facility] Left: Knee SALAZAR 09/18/2025 [id number] / / [id number] Knee Insert Xr Xlpe Journey Ii Med 5-6 Lt 9mm 1 - [id number] Implanted:Qty: 1 on 12/24/2016 by Mitch Pederson MD at [facility] Left: Knee SALAZAR 06/24/2025 [id number] / / [id number] Knee Component Patella Std 35mm Resurfacing Any Jalloh Knee - [id number] Implanted:Qty: 1 on 12/24/2016 by Mitch Pederson MD at [facility] Left: Knee SALAZAR 10/13/2026 [id number] / / [id number] Cement Bone 40gr [place]os R Single Dose Bx/1bo/1ea - [id number] Implanted:Qty: 2 on 12/24/2016 by Mitch Pederson MD at [facility] Left: Knee DIANA / DIV OF [employer] 07/08/2021 [id number] / / [id number] [place] Suture 4.5mm Arthroscopy Reelx Stt Peek Stainless Steel Core Knotless Sharp Tip Expandable Sterile Bx/5ea - [id number] Implanted:Qty: 1 on 07/10/2017 by Venu Lazcano DO at [facility] Right: Shoulder [employer] 04/20/2019 [id number] / / [id number] [place] BL[place] MEDICARE PART A & B MEDICARE PART A & B MEDICARE PART A & [place] MEDIC[place] PART A & [place] BL[place] MEDIC[place] A & [place] MEDICARE PART A & B Advance Directives For more information, please contact: [phone] (9AM - 5PM [place], Thursday-Thursday) * Full Code (Presumed) (Latest Code Status on File) Date Activated Date Inactivated Comments 07/10/2017 8:43 AM 07/10/2017 4:07 PM * Full Code (Presumed) Date Activated Date Inactivated Comments 12/24/2016 8:52 PM 12/26/2016 10:45 AM * Full Code (Presumed) Date Activated Date Inactivated Comments 12/24/2016 12:34 PM 12/24/2016 8:52 PM Care Teams Sand Slinger Operator Relationship Specialty Start Date End Date Bita Mcallister PA [address] [place] [address] PCP - General Physician Manufacturers Agent 03/13/25 Korina Tay MD [address] [place] [address] [email or web address] Insurance Assigned Provider Pediatrics 09/12/24 Additional Source Comments The information contained in this document represents components of the legal health record. It is not the complete legal health record.[facility]
--- OUTSIDE RECORDS SUMMARY | 2025-04-11 12:48 | XMS_ITS | Encounter Summary ---
Author Organization [facility] Address [address] [place] [address] [place] [address] Phone Care Team Providers Care Programming Instructor Name Role Phone Laurence Man MD Primary Care Provider Laurence Man MD Primary Care Provider [phone] Korina Tay MD Primary Care Provider [phone] Melanie Blevins NP Primary Care Provider Korina Tay MD Unavailable [phone] Bita Mcallister Primary Care Provide r Encounter Details Date Type Department Care Team (Late st Contact Info) Description 12/24/2016 Procedure Pass [facility] [address] [place] [id number] Social History Tobacco Use Types Packs/Day Years [...] as of this encounter Plan of Treatment Not on file documented as of this encounter Visit Diagnoses Not on filedocumented in this encounter Additional Health Concerns Infection Onset Date Last Indicated Resolved Time CoV-Risk 06/27/2024 06/27/2024 07/08/2024 1:21 AM EST documented as of this encounter Care Teams Programming Instructor Relationship Specialty Start Date End Date Laurence Man MD PCP - General Internal Medicine 10/27/16 04/07/17 Laurence Man MD PCP - General Internal Medicine 04/08/17 06/26/24 Korina Tay MD [address] [place] [address] PCP - General Pediatrics 06/27/24 08/30/24 Melanie Blevins NP [address] [place] [address] PCP - General Nurse Practitioner 08/31/24 03/12/25 Bita Mcallister PA [address] [place] [address] PCP - General Physician Grain Manager 03/13/25 Korina Tay MD [address] [place] [address] Insurance Assigned Provider Pediatrics 09/12/24 documented as of this encounter Additional Source Comments The information contained in this document represents components of the legal health record. It is not the complete legal health record.[facility]
--- OUTSIDE RECORDS SUMMARY | 2025-04-11 12:48 | XMS_ITS | Encounter Summary ---
Author Organization [facility] Address [address] [address] Phone Care Team Providers Care Footwear Production Machine Operator Name Role Phone Laurence Man MD Primary Care Provider [phone] Kroina Tay MD Primary Care Provider Melanie Blevins NP Primary Care Provider Korina Tay MD Unavailable [phone] Bita Mcallister Primary Care Provide r Reason for Referral * MRI/CAT Scan - Closed Specialty Diagnoses / Procedures Referred By Emmanuel chowdhury Referred To Contact Procedures MRI Outside Upper Extremity (No Interpretation) System, Provider Not In, [facility] [address] [address] Referral ID Status Reason Start Date Expiration Date Visits Re quested Visits Authorized [id number] Closed 06/30/2017 06/30/2018 1 1 Encounter Details Date Type Department Care Team (Late st Contact Info) Description 06/30/2017 Ancillary Orders [facility],Outside Imaging [address] [place], [place] [id number] System, Provider Not In, [facility] [employer] [address] Social History Tobacco Use Types Packs/Day Years [...] documented as of this encounter Care Teams Footwear Production Machine Operator Relationship Specialty Start Date End Date Laurence Man MD PCP - General Internal Medicine 04/08/17 06/26/24 Korina Tay MD [address] [place] [address] PCP - General Pediatrics 06/27/24 08/30/24 Melanie Blevins NP [address] [place] [address] PCP - General Nurse Practitioner 08/31/24 03/12/25 Bita Mcallister PA [address] [place] [address] PCP - General Physician Showroom Salesperson 03/13/25 Korina Tay MD [address] [place] [address] Insurance Assigned Provider Pediatrics 09/12/24 documented as of this encounter Additional Source Comments The information contained in this document represents components of the legal health record. It is not the complete legal health record.[facility]
--- OUTSIDE RECORDS SUMMARY | 2025-04-11 12:48 | XMS_ITS | Encounter Summary ---
Author Organization [facility] Address [address] [facility] [address] [place] [address] Phone Care Team Providers Care Honest John Rocket Crew Member Name Role Phone Laurence Man MD Primary Care Provider Laurence Man MD Primary Care Provider [phone] Korina Tay MD Primary Care Provider Melanie Blevins NP Primary Care Provider Korina Tay MD Unavailable [phone] Bita Mcallister Primary Care Provide r Encounter Details Date Type Department Care Team (Late st Contact Info) Description 12/11/2016 Prep for Surgery Mitch Pederson MD [address] [facility] [address] [place] [address] Mitch Pederson MD [address] [place], [place] [address] [place] [address] [email or web address] Social History Tobacco Use Types Packs/Day Years [...] documented as of this encounter Care Teams Honest John Rocket Crew Member Relationship Specialty Start Date End Date Laurence Man MD PCP - General Internal Medicine 10/27/16 04/07/17 Laurence Man MD PCP - General Internal Medicine 04/08/17 06/26/24 Korina Tay MD [address] [place] [address] PCP - General Pediatrics 06/27/24 08/30/24 Melanie Blevins NP [address] [place] [address] PCP - General Nurse Practitioner 08/31/24 03/12/25 Bita Mcallister PA [address] [place] [address] PCP - General Physician Residential Solar Consultant 03/13/25 Korina Tay MD [address] [place] [address] [email or web address] Insurance Assigned Provider Pediatrics 09/12/24 documented as of this encounter Additional Source Comments The information contained in this document represents components of the legal health record. It is not the complete legal health record.[facility]
--- OUTSIDE RECORDS SUMMARY | 2025-04-11 12:48 | XMS_ITS | Clinical Summary ---
Author Organization [employer] Address [address] [facility] 7[address] [place] [address] Care Team Providers Care Uke Operator Name Role Phone PcpAlyssia Unassigned Primary Care Provider U navailable Allergies Active Allergy Reactions Criticality Noted Date Comments Honey Bee Venom Anaphylaxis High 05/01/2022 Medications atorvastatin (Lipitor) 80 MG tabletIndications:M ixed hyperlipidemia Take 1 tablet (80 mg) by mouth Once per day. 90 tablet 3 5 12/23/19 26 Active EPINEPHrine (Epipen) 0.3 MG/0.3ML injection syringe Inject 0.3 mL (0.3 mg) as directed 1 (one) time for 1 dose. Inject into upper leg. Call 911 after use. 1 each 5 Active Active Problems Problem Noted Date Diagnosed [...] 01/18/24. HEALTH CARE MAINTENANCE: Colonoscopy (age 45-75): Matt Austin is sending him Cologuard. Has cscope about [...] 66. IMMUNIZATIONS: Tetanus (every 10 years): Done 2018, due 2028. Pneumococcal (age 65): Declines. Shingrix (age 50): Declines. Had Shingles 2019. COVID: Declines, never had it. Had COVID 2019. FLU: Declines. Reviewed all health care maintenance. [...] Plan (07/09/2022 9:22 AM EST): Referred to [facility] in February 2022. Was told he needs an imaging study prior to appointment - unsure of which one. Will call [facility] to find out what test is [...] pain 06/09/2017 Arthritis of left knee 12/24/2016 Immunizations Immunization Administration Dates Next Due Tdap [...] - 07/06/2024 2:05 PM EST Performed at: - [facility] [id number] Junior Copywriter: Sushma Cat MD, Phone: [phone] Specimen Comment: A courtesy copy of this report has been sent to [phone] us Deanne Horner BLEACH SUPERVISOR LAB BLOOD ORDERABLES Final Result [facility] 1 * Hepatitis C Virus (HCV) Antibody [place] to Quantitative PCR and Genotyping [id number] (01/18/2024 9:42AM EDT) Pathologist [facility] [place] HCV Ab Non Reactive Non Reactive [facility] 1 Blood Venous blood specimen / Unknown 01/18/2024 9:42 AM EDT 01/18/2024 Narrative [facility] 1 - 01/19/2024 12:05 PM EDT Performed at: - [facility] [address], [place], [place] [id number] Junior Copywriter: Oleg Cannon MD, Phone: [phone] us Melanie Blevins BLEACH SUPERVISOR LAB BLOOD ORDERABLES Final Resul t [facility] 1 * POCT glycosylated hemoglobin (Hgb A1c) (01/18/2024 9:38 AM EDT) Pathologist [facility] [place] Hemoglobin A1C 6.0 4.0 - 6.0 % Blood Capillary blood specimen / Unknown 01/18/2024 9:38 AM EDT Melanie Blevins NP POINT OF CARE TEST ENTER/EDIT OR DERABLES Final Result from Last 3 Months or Most Recently Relevant to Health Maintenance Insurance [place] MED[place] REPLACEMENT HMO Care Teams Uke Operator Relationship Specialty Start Date End Date PcpAlyssia Unassigned PCP - General Family Medicine 03/06/25
--- OUTSIDE RECORDS SUMMARY | 2025-04-11 12:48 | XMS_ITS | Encounter Summary ---
Author Organization [facility] Address [address] [place] [address] Phone Care Team Providers Care Research Assistant Member Name Role Phone Laurence Man MD Primary Care Provider Korina Tay MD Primary Care Provider Melanie Blevins NP Primary Care Provider Korina Tay MD Unavailable [phone] Bita Mcallister Primary Care Provide r Encounter Details Date Type Department Care Team (Late st Contact Info) Description 07/10/2017 Procedure Pass [place] Admitting Dept - Virtual Department [address] [place] [address] Social History Tobacco Use Types Packs/Day Years [...] documented as of this encounter Care Teams Research Assistant Member Relationship Specialty Start Date End Date Laurence Man MD PCP - General Internal Medicine 04/08/17 06/26/24 Korina Tay MD [address] [place] [address] PCP - General Pediatrics 06/27/24 08/30/24 Melanie Blevins NP [address] [place] [address] PCP - General Nurse Practitioner 08/31/24 03/12/25 Bita Mcallister PA [address] [place] [address] PCP - General Physician Storm Door Maker 03/13/25 Korina Tay MD [address] [place] [address] [email or web address] Insurance Assigned Provider Pediatrics 09/12/24 documented as of this encounter Additional Source Comments The information contained in this document represents components of the legal health record. It is not the complete legal health record.[facility]
--- OUTSIDE RECORDS SUMMARY | 2025-04-11 12:49 | XMS_ITS | Encounter Summary ---
Author Organization [facility] Address [facility] [employer] [facility] [address] [place] [address] Phone Care Team Providers Care Inspector Metal Can Name Role Phone Laurence Man MD Primary Care Provider Korina Tay MD Primary Care Provider [phone] Melanie Blevins NP Primary Care Provider Korina Tay MD Unavailable [phone] Bita Mcallister Primary Care Provide r Encounter Details Date Type Department Care Team (Late st Contact Info) Description 06/30/2017 Procedure Pass [facility],Outside Imaging [address] [place] [address] Social History Tobacco Use Types Packs/Day Years [...] Entry Date Author No 12/25/2016 3:40 PM EDBasilia Goins NP documented in this encounter Plan of Treatment Not on file documented as of this encounter Visit Diagnoses Not on filedocumented in this encounter Additional Health Concerns Infection Onset Date Last Indicated Resolved Time CoV-Risk 06/27/2024 06/27/2024 07/08/2024 1:21 AM EST documented as of this encounter Care Teams Inspector Metal Can Relationship Specialty Start Date End Date Laurence Man MD PCP - General Internal Medicine 04/08/17 06/26/24 Korina Tay MD [address] [place] [address] PCP - General Pediatrics 06/27/24 08/30/24 Melanie Blevins NP [address] [place] [address] PCP - General Nurse Practitioner 08/31/24 03/12/25 Bita Mcallister PA [address] [place] [address] PCP - General Physician Payroll Master 03/13/25 Korina Tay MD [address] [place] [address] [email or web address] Insurance Assigned Provider Pediatrics 09/12/24 documented as of this encounter Additional Source Comments The information contained in this document represents components of the legal health record. It is not the complete legal health record.[facility]
--- OUTSIDE RECORDS SUMMARY | 2025-04-11 12:49 | XMS_ITS | Encounter Summary ---
Author Organization [facility] Address [address] [place] [address] [place] [address] Phone Care Team Providers Care White Kid Buffer Name Role Phone Laurence Man MD Primary Care Provider [phone] Korina Tay MD Primary Care Provider Melanie Blevins NP Primary Care Provider Korina Tay MD Unavailable [phone] Bita Mcallister Primary Care Provide r Encounter Details Date Type Department Care Team (Late st Contact Info) Description 04/08/2017 Procedure Pass [facility] [address] [facility], 6th [place] [address] Social History Tobacco Use Types Packs/Day Years [...] Author No 12/25/2016 3:40 PM EDT Basilia Yee, HIGH SCHOOL ART TEACHER * Patient is blind or has serious [...] documented as of this encounter Care Teams White Kid Buffer Relationship Specialty Start Date End Date Laurence Man MD PCP - General Internal Medicine 04/08/17 06/26/24 Korina Tay MD [address] [place] [address] [email or web address] PCP - General Pediatrics 06/27/24 08/30/24 Melanie Blevins NP [address] [place] [address] PCP - General Nurse Practitioner 08/31/24 03/12/25 Bita Mcallister PA [address] [place] [address] PCP - General Physician Patient Clerical Assistant 03/13/25 Korina Tay MD [address] [place] [address] [email or web address] Insurance Assigned Provider Pediatrics 09/12/24 documented as of this encounter Additional Source Comments The information contained in this document represents components of the legal health record. It is not the complete legal health record.[facility]
--- OUTSIDE RECORDS SUMMARY | 2025-04-11 12:49 | XMS_ITS | Encounter Summary ---
Author Organization [facility] Address [address] [facility] [address] [place] [address] Phone Care Team Providers Care Financial Report Service Sales Agent Name Role Phone Laurence Man MD Primary Care Provider Korina Tay MD Primary Care Provider Melanie Blevins NP Primary Care Provider Korina Tay MD Unavailable [phone] Bita Mcallister Primary Care Provide r Encounter Details Date Type Department Care Team (Late st Contact Info) Description 01/18/2024 Procedure Pass [facility] [address] [place] [address] Social History Tobacco Use Types Packs/Day Years [...] of Assessment Author No 12/25/2016 3:40 PM Basilia Gonzalez NP * Patient is blind or has serious difficulty with seeing, even when wearing glasses Answer Date of Assessment Author No 12/25/2016 3:40 PM MELLT Basilia Yee NP * Patient has serious difficulty walking or climbing stairs (5yr old or older) Answer Date of Assessment Author Yes 12/25/2016 3:40 PM MELLT Basilia Yee NP * Patient has serious difficulty dressing or bathing (5yr old or older) Answer Date of Assessment Author No 12/25/2016 3:40 PM Basilia Gonzalez NP * Patient has serious difficulty doing errands alone such as visiting a doctor???s office or shopping, due to physical, mental, or emotional condition (15 years old or older) Answer Date of Assessment Author Yes 12/25/2016 3:40 PM Basilia Gonzalez NP documented as of this encounter Mental Status * Patient has serious difficulty concentrating, remembering, or making decisions due to physical, mental, or emotional condition Answer Entry Date Author No 12/25/2016 3:40 PM Basilia Gonzalez NP documented in this encounter Plan of Treatment Not on file documented as of this encounter Visit Diagnoses Not on filedocumented in this encounter Additional Health Concerns Infection Onset Date Last Indicated Resolved Time CoV-Risk 06/27/2024 06/27/2024 07/08/2024 1:21 AM EST documented as of this encounter Care Teams Financial Report Service Sales Agent Relationship Specialty Start Date End Date Laurence Man MD PCP - General Internal Medicine 04/08/17 06/26/24 Korina Tay MD [address] [place] [address] [email or web address] PCP - General Pediatrics 06/27/24 08/30/24 Melanie Blevins NP [address] [place] [address] PCP - General Nurse Practitioner 08/31/24 03/12/25 Bita Mcallister PA [address] [place] [address] PCP - General Physician Car Starter 03/13/25 Korina Tay MD [address] [place] [address] [email or web address] Insurance Assigned Provider Pediatrics 09/12/24 documented as of this encounter Additional Source Comments The information contained in this document represents components of the legal health record. It is not the complete legal health record.[facility]
[2025-04-11 14:45] LABS: MANUAL DIFF FLAG NO
[2025-04-11 14:54] LABS: Hematocrit 44.3 % (42.0-52.0); Hemoglobin 14.5 g/dl (14.0-18.0); Imm Gran Abs Auto 0.05 X10*3/uL (0.00-0.03); Imm Gran Pct Auto 0.7 % (0.0-0.4); Lymphocytes Absolute Auto 1.6 X10*3/uL (1.2-4.9); Mean Corpuscular HGB Conc 32.7 g/dl (31.0-36.0); Mean Corpuscular Hemoglobin 29.0 pg (27.0-33.0); Mean Corpuscular Volume 88.6 fL (80.0-98.0); NRBC Abs Auto 0.000 X10*3/uL (0.0-0.012); NRBC Pct Auto 0.0 /100WBC (0.0-0.2); Platelet Count 167 X10*3/uL (160-400); Red Blood Count 5.00 X10*6/uL (4.60-5.80); White Blood Count 7.6 X10*3/uL (4.8-10.8)
[2025-04-11 15:12] LABS: Alanine Aminotransferase 32 U/L (0-40); Albumin Level 4.4 g/dL (3.5-5.0); Alkaline Phosphatase 68 U/L (39-117); Anion Gap 13 (12-20); Aspartate Amino Transferase 38 U/L (5-37); Blood Urea Nitrogen 18 mg/dL (9-16); Calcium 9.4 mg/dL (8.4-10.2); Carbon Dioxide 30 mmol/L (22-29); Chloride 102 mmol/L (96-108); Estimated Glomerular Filt Rate > 60; Iron 76 mcg/dL (45-160); Percent Iron Saturation 35 % (15-50); Potassium 4.2 mmol/L (3.3-5.1); Sodium 141 mmol/L (135-145); Total Iron Binding Capacity 218 mcg/dL (228-428); Total Protein 7.1 g/dL (6.5-8.0); Unsaturated Iron Binding 142 ug/dL
[2025-04-11 15:24] LABS: Microalbum/Creatinine Ratio Ur 63.1 ug/mg cr (<30)
[2025-04-11 15:29] LABS: Ferritin 325 ng/mL (20-250)
== END 2025-04-11 10:54 | disposition home or self-care (01) ==
LOC: HO.WFDLDS 10:53
PROVIDERS: Visit Provider Physician Assistant Medical
DX: E11.9 Type 2 diabetes mellitus without complications (principal); D69.6 Thrombocytopenia, unspecified; R03.0 Elevated blood-pressure reading, without diagnosis of hypertension; R80.9 Proteinuria, unspecified
CPT/HCPCS: 36415; 80053; 82043; 82570; 82728; 83540; 85025

== ENCOUNTER 2025-04-17 09:02 | Outpatient (AMB) | payer MEDICARE, SELFPAY ==
--- NOTE | 2025-04-17 09:28 | MHC.PC.OV ---
Vital Signs 04/17/25 09:32 Height 5 ft 7 in Weight 243 lb 4 oz BMI 38.1 BP 136/82 Blood Pressure Location Rt brachial Position Sitting Respiration 16 Pulse 65 Pulse Source Pulse Oximeter Temp 97.4 F Temp Source Temporal Artery Scan Pulse Oximetry (%) 96 Oxygen Delivery Method Room Air Intake Visit Reasons: Pre-op Intake Note: Blas presents in the office today for a pre-op for cataract surgery of his left eye. [employer] Required: No Allergies bee pollen (BEE STINGS) Allergy (Severe, Unverified 04/17/25 09:31) ANAPHYLAXIS, hives Medication List - Last Reconciled 04/17/25 by ENRICO Veras aspirin 81 mg PO DAILY atorvastatin (Lipitor) 80 mg PO DAILY Tobacco use date assessed: 04/17/25 Dental Screening Dental Screen Date: 04/17/25 Did you have a dental visit in the last 12 months?: Yes Did you have a dental problem in the last 6 months where you did not have access to dental care?: No Was dental information given to patient?: Patient has dentist HPI HPI Comments History of Present Illness Details 69-year-old male with a past medical history of prediabetes, hyperlipidemia, left ear cholesteatoma, osteoarthritis, elevated blood pressure and obesity presents for a preop. He is having his left cataract surgery on 05/23/2025. Left eye retinal occlusion-receives injections every 5 weeks. History of left ear cholesteatoma. Underwent operation at [place] some 30 years ago. Sees ENT in [place] annually for exam. He has had multiple orthopedic surgeries in the past. No issues with anesthesia or excessive bleeding or blood clots. He has elevated blood pressure. He watches his sodium. He states again he does not want to take medication for it. He monitors his blood pressure at home. He says it his neurology appointment in March the blood pressure was 130/80. He has lost weight since his last visit, and his blood pressure improved. Hyperlipidemia is treated with Lipitor 80 mg daily. He is also on baby aspirin. Several years ago he was evaluated for for possible TIA, but he says that neurology saw him and ran multiple tests, and they determined it was not a TIA or CVA. He just saw his neurologist, and he was discharged from routine follow up. EKG today showed normal sinus rhythm with first-degree AV block, nonspecific T-wave abnormality and possible LVH. He pulled up an echocardiogram on his phone that was done on 01/26/2024 which did show mild concentric left ventricular hypertrophy, LVEF 65%, no significant valve disease. Denies chest pain or palpitations. He does endorse some shortness of breath with vigorous exertion. Yesterday this happened when he was moving furniture. He can go up 2 flights of stairs without shortness of breath. He does not get dizzy. He has not had a stress test. He does not drink alcohol or smoke. When he was having lab work done recently the technical coordinator told him to mention that his lips have a purplish discoloration, but patient says this is the way that his lips always look, and they are never cold. He also has a history of prediabetes. We reviewed his lab work. This was completed on 04/11/2025. CBC was normal aside from mild elevation of immature granulocytes. His ferritin level was elevated at 325. Iron level was normal. He does not take any iron containing supplements. His AST liver enzyme was mildly elevated at 38. No known family history of hemochromatosis. His other liver function tests were normal. He had persistent microalbuminuria which was stable from January. Patient was in [place] during the month of February and had a 12 day long diarrheal illness while there. This resolved. ROS: Constitutional: No unexplained weight loss, fever, chills, fatigue or night sweats. Eyes: No vision changes, blurry vision, double vision, eye pain, eye redness, eye discharge. ENT: No hearing loss, sneezing, congestion, runny nose or sore throat. Respiratory: No cough or wheezing. No hemoptysis. +dyspnea on exertion per HPI Cardiovascular: No chest pain, chest pressure or chest discomfort. No palpitations or pedal edema. Gastrointestinal: No anorexia, nausea, vomiting or diarrhea. No abdominal pain or blood in stool. Genitourinary: No dysuria, hematuria, urinary frequency. Neurologic: No headache, dizziness, syncope or weakness Hematologic/Lymphatics: No bleeding or bruising. No painful lymph nodes. Skin: No rash or itching. Endocrine: No cold or heat intolerance. No polyuria or polydipsia. Physical exam: Constitutional: Alert, in no distress. Eyes: Pupils are equal, round and reactive to light. Extraocular muscles intact. Ear, Nose and Throat: Canals clear. TMs normal. Normal nasal mucosa. No nasal discharge. No oral lesions. Mouth: The upper and lower lips have a purplish brown hue, but there is no cyanosis. Neck: Supple, Full range of motion. No lymphadenopathy. No palpable thyroid masses. Respiratory: Clear to auscultation. Cardiovascular: S1 S2 regular. No murmur Gastrointestinal: Abdomen soft, non-tender, non-distended. Normal bowel sounds. No palpable masses. Neurologic: No focal neurological deficits. Extremities: Warm and well perfused. No clubbing, cyanosis or edema. Intact peripheral pulses bilaterally. Psychiatric: Normal mood and affect [facility] Medical History (Updated 04/17/25 @ 17:29 by ENRICO Veras) PUCKETT (dyspnea on exertion) Abnormal EKG LFT elevation Pre-op evaluation Cataract, left Elevated ferritin Cataracts, bilateral Microalbuminuria Decreased platelet count Retinal vascular occlusion, left eye Elevated blood pressure reading Obesity, class 2 History of cholesteatoma Prediabetes History of shingles Hyperlipemia Rotator cuff injury Surgical History (Updated 01/17/25 @ 16:34 by ENRICO Veras) History of repair of right rotator cuff S/P knee replacement Family History Sister Cardiomyopathy Social History (Updated 04/17/25 @ 09:32 by Angelina Casey CMA) Housing: House Alcohol intake: current Comment: Socially Patient Tobacco Use Status: Never used Tobacco e-Cigarette/Vaping Use: Never Used Second Hand Smoke Exposure: No service: No Current occupational status: employed Current occupation: [employer] Current occupational exposures/hazards: No Cognitive needs: No Hearing needs: Yes Vision needs: Yes Questionnaire PHQ-9 Over the last 2 weeks, how often have you been bothered by any of the following problems? 1. Little interest or pleasure in doing things: not at all 2. Feeling down, depressed, or hopeless: not at all 3. Trouble falling or staying asleep, or sleeping too much: not at all 4. Feeling tired or having little energy: not at all 5. Poor appetite or overeating: not at all 6. Feeling bad about yourself - or that you are a failure or have let yourself or your family down: not at all 7. Trouble concentrating on things, such as reading the newspaper or watching television: not at all 8. Moving or speaking so slowly that other people could have noticed. Or the opposite - being so fidgety or restless that you have been moving around a lot more than usual: not at all 9. Thoughts that you would be better off or of hurting yourself in some way: not at all Total score: 0 Source: Developed by Drs. Nick Ross, Bhavana yVas, Baldemar Burciaga and colleagues, with an educational myrtle from [email or web address]. Thrive Questionnaire Date Thrive assessed: 01/16/25 I am a: Patient What is your living situation today?: I have a steady place to live Within the past 12 months, did the food you bought not last and you didn't have the money to get more?: Never true Within the past 12 months, did you worry whether your food would run out before you got money to buy more?: Never true Do you have trouble paying for medicines?: No Do you have trouble getting transportation to medical appointments?: No Do you have trouble paying your heating and electricity bill?: No Do you have trouble taking care of your child, family member or friend?: No Do you have trouble with day-to-day activities such as bathing, preparing meals, shopping, managing finances, etc.?: No Are you currently unemployed and looking for a job?: No Are you interested in more education?: No Please select the resources that you would like help with: None Currently or been in a relationship where the following occur: No concerns reported THRIVE Score: 0 AUDIT C Alcohol Use Questionnaire (AUDIT-C) 1. How often do you have a drink containing alcohol?: Monthly or less 2. How many drinks containing alcohol do you have on a typical day when you are drinking?: 1 or 2 3. How often do you have six or more drinks on one occasion?: Never Total Score: 1 GUS-7 AMB Questionnaire GUS-7 Feeling nervous, anxious, or on edge: 0 = Not at all Not being able to stop or control worryin = Not at all Worrying too much about different things: 0 = Not at all Trouble relaxin = Not at all Being so restless that it is hard to sit still: 0 = Not at all Becoming easily annoyed or irritable: 0 = Not at all Feeling afraid as if something awful might happen: 0 = Not at all Total GUS-7 score (0-4 normal; 5-9 mild; 10-14 moderate; 15-21 severe): 0 Source: Developed by Drs. Nick Ross, Bhavana Vyas, Baldemar Burciaga and colleagues, with an educational myrtle from [email or web address]. Physical exam (Primary Care) Vital Signs: Last Vital Signs Temp 97.4 F 04/17/25 09:32 Pulse 65 04/17/25 09:32 Resp 16 04/17/25 09:32 BP 136/82 04/17/25 09:32 Pulse Ox 96 04/17/25 09:32 Oxygen Delivery Method Room Air 04/17/25 09:32 BMI result Body Mass Index 38.1 Tobacco/Smoking Status: Tobacco use Status Tobacco use date assessed 04/17/25 04/17/25 09:35 Patient Tobacco Use Status Never used Tobacco 04/17/25 09:32 e-Cigarette/Vaping Use Never Used 04/17/25 09:32 PHQ-9: PHQ-9 Score PHQ-9: Total score 0 04/17/25 10:48 Thrive Assessment: Date of Thrive Assessment Date Thrive assessed 01/16/25 04/17/25 09:28 Currently or been in a relationship where the following occur: No concerns reported Office Procedures EKG Details: EKG shows sinus rhythm with first-degree AV block, minimal voltage criteria for LVH which may be a normal variant (are in aVL), nonspecific T-wave abnormality, 60 beats per minute. There was significant artifact in V5 despite checking lead placement and repeating EKG. Reviewed by Dr. Bob. [id number], Complete Results Reviewed Results Reviewed: Laboratory Tests 04/11/25 10:54 RBC 5.00 Hgb 14.5 Hct 44.3 Plt Count 167 Abs Immat Gran (auto) 0.05 H Creatinine 0.86 Estimated GFR > 60 Iron 76 TIBC 218 L % Saturation 35 Unsat Iron Binding 142 Ferritin 325 H AST 38 H ALT 32 Alkaline Phosphatase 68 Coding Level of Care Code Est Pt Level 5 (35029) Complex visit Add On G2211 Diagnoses Pre-op evaluation Z01.818 Elevated liver enzymes R74.8 Prediabetes R73.03 Microalbuminuria R80.9 Elevated ferritin R79.89 Cataract, left H26.9 PUCKETT (dyspnea on exertion) R06.09 CPT Codes EKG - CPT: [id number], Complete ([id number]) Time Spent (min) 55 Comment Direct patient care, completing documentation Assessment & Plan Assessment & Plan (1) Pre-op evaluation: Code(s): Z01.818 - Encounter for other preprocedural examination Category: Medical Plan: In summary this is a 69-year-old male with a past medical history of elevated blood pressure, hyperlipidemia, prediabetes and obesity presenting for a preoperative examination. His risk is average for this low risk procedure. METS 4-10. Patient's EKG was abnormal today. He had an echo which did show mild LVH. He has no signs of CHF on exam. Nonspecific T-wave abnormality, but there are no acute ischemic findings. He can proceed with cataract surgery. Reviewed with Dr. Bob. (2) Elevated liver enzymes: Code(s): R74.8 - Abnormal levels of other serum enzymes Plan: Proceed with testing for hemochromatosis, hepatitis, liver ultrasound. (3) Prediabetes: Code(s): R73.03 - Prediabetes Category: Medical Plan: Continue to modify diet. Congratulated on weight loss. Monitor A1c. (4) Microalbuminuria: Code(s): R80.9 - Proteinuria, unspecified Category: Medical Plan: Repeat urinalysis and check kidney ultrasound. This may be related to history of elevated blood pressure and prediabetes. (5) Elevated ferritin: Code(s): R79.89 - Other specified abnormal findings of blood chemistry Category: Medical Plan: Check hemochromatosis labs. He was sick with a diarrheal illness after traveling in February, and ferritin levels may increase with infection. I do not have any baseline to compare this to so he will repeat the ferritin level as well. (6) Cataract, left: Code(s): H26.9 - Unspecified cataract Category: Medical (7) PUCKETT (dyspnea on exertion): Code(s): R06.09 - Other forms of dyspnea Category: Medical Plan: EKG reviewed by Dr. Bob. He has chronic, mild dyspnea on exertion with vigorous activity. No chest pain or other anginal symptoms. Given additional risk factors for cardiovascular disease I will order a nuclear stress test. Plan Follow up in 8 weeks. Orders: Orders AMB EKG-In Office Today E78.00 - Pure hypercholesterolemia, unspecified, R03.0 - Elevated blood-pressure reading, without diagnosis of hypertension DNA Analysis Hemochromatosis Today E78.00 - Pure hypercholesterolemia, unspecified, R03.0 - Elevated blood-pressure reading, without diagnosis of hypertension, R73.03 - Prediabetes, R74.8 - Abnormal levels of other serum enzymes, R79.89 - Other specified abnormal findings of blood chemistry, R80.9 - Proteinuria, unspecified Complete Blood Count Auto Diff Today E78.00 - Pure hypercholesterolemia, unspecified, R03.0 - Elevated blood-pressure reading, without diagnosis of hypertension, R73.03 - Prediabetes, R74.8 - Abnormal levels of other serum enzymes, R79.89 - Other specified abnormal findings of blood chemistry, R80.9 - Proteinuria, unspecified Liver Panel Today E78.00 - Pure hypercholesterolemia, unspecified, R03.0 - Elevated blood-pressure reading, without diagnosis of hypertension, R73.03 - Prediabetes, R74.8 - Abnormal levels of other serum enzymes, R79.89 - Other specified abnormal findings of blood chemistry, R80.9 - Proteinuria, unspecified Hepatitis A IgM Today E78.00 - Pure hypercholesterolemia, unspecified, R03.0 - Elevated blood-pressure reading, without diagnosis of hypertension, R73.03 - Prediabetes, R74.8 - Abnormal levels of other serum enzymes, R79.89 - Other specified abnormal findings of blood chemistry, R80.9 - Proteinuria, unspecified Hepatitis A,B,C Profile Today E78.00 - Pure hypercholesterolemia, unspecified, R03.0 - Elevated blood-pressure reading, without diagnosis of hypertension, R73.03 - Prediabetes, R74.8 - Abnormal levels of other serum enzymes, R79.89 - Other specified abnormal findings of blood chemistry, R80.9 - Proteinuria, unspecified IRON PROFILE Today E78.00 - Pure hypercholesterolemia, unspecified, R03.0 - Elevated blood-pressure reading, without diagnosis of hypertension, R73.03 - Prediabetes, R74.8 - Abnormal levels of other serum enzymes, R79.89 - Other specified abnormal findings of blood chemistry, R80.9 - Proteinuria, unspecified Ferritin Today E78.00 - Pure hypercholesterolemia, unspecified, R03.0 - Elevated blood-pressure reading, without diagnosis of hypertension, R73.03 - Prediabetes, R74.8 - Abnormal levels of other serum enzymes, R79.89 - Other specified abnormal findings of blood chemistry, R80.9 - Proteinuria, unspecified UA w Microscopic Today E78.00 - Pure hypercholesterolemia, unspecified, R03.0 - Elevated blood-pressure reading, without diagnosis of hypertension, R73.03 - Prediabetes, R74.8 - Abnormal levels of other serum enzymes, R79.89 - Other specified abnormal findings of blood chemistry, R80.9 - Proteinuria, unspecified Hemoglobin A1c Today R73.9 - Hyperglycemia, unspecified US retroperitoneal comp Today R80.9 - Proteinuria, unspecified NM cardiolite stress test Today R06.09 - Other forms of dyspnea, R94.31 - Abnormal electrocardiogram [ECG] [EKG] US abdomen figueroa w elastography Today R79.89 - Other specified abnormal findings of blood chemistry CA stress test Today R06.09 - Other forms of dyspnea, R94.31 - Abnormal electrocardiogram [ECG] [EKG]
[2025-04-17 09:32] VITALS: BP 136/82; PULSE 65; RESP 16; TEMP 36.3; O2SAT 96; BMI 38.1
== END 2025-04-17 10:46 | disposition home or self-care (01) ==
LOC: HO.HMCFM 09:02
PROVIDERS: PCP Physician Assistant Medical; Visit Provider Physician Assistant Medical
DX: Z01.818 Encounter for other preprocedural examination (principal); R73.03 Prediabetes; R80.9 Proteinuria, unspecified; H26.9 Unspecified cataract; R06.09 Other forms of dyspnea; R74.8 Abnormal levels of other serum enzymes; R79.89 Other specified abnormal findings of blood chemistry

== ENCOUNTER → 2025-04-17 09:02 | Outpatient (BNVA) | payer MEDICARE, SELFPAY | PROVIDERS: PCP Internal Medicine; Visit Provider Physician Assistant Medical | DX: Z01.818 Encounter for other preprocedural examination (principal); R73.03 Prediabetes; E78.5 Hyperlipidemia, unspecified; R03.0 Elevated blood-pressure reading, without diagnosis of hypertension; R74.8 Abnormal levels of other serum enzymes; R80.9 Proteinuria, unspecified; R79.89 Other specified abnormal findings of blood chemistry; H26.9 Unspecified cataract; R06.09 Other forms of dyspnea; Z79.899 Other long term (current) drug therapy | CPT/HCPCS: 93005; 96127; 99212 ==